=== PATIENT | male | born 1925 | race Caucasian/White ===

== ENCOUNTER 2016-09-08 01:19 | Inpatient (IN) | payer MEDICARE, MEDICAID, OTHER ==
[2016-09-08] VITALS (10 sets, daily range): BP systolic 96–126; BP diastolic 49–62; PULSE 65–126; RESP 14–21; O2SAT 91–99
[~2016-09-08] VITALS: Ht 182.9 cm; Wt 80.4 kg
[~2016-09-08 01:19] MED LIST: ACET325C PO; ASPI-973 PO; DOCU-41 PO; EUCA170O5 EXT; FLUT9.9S NS; GLPZ5T PO; LEVO175T5 PO; LEVO750T9 PO; MAGN400T4 PO; MULT-1008 PO; MUPI22OI2 TOP; OMEP20CA11 PO; RANI150C4 PO; THIO10TA PO; TOLN133P TP; TOLT2TAB5 PO; TROL35.4 TP; [UNRECOGNIZED DRUG - OTHER] PO
[2016-09-08] MEDS ORDERED: 0.9% Sodium Chloride 1,000 ML IV ONE ×3 (01:21→03:35)
--- NOTE | 2016-09-08 01:21 | ED.REPORT ---
HPI-General Illness Date of Service Sep 08, 2016 ED Provider: Db CespedesO. An 89 year old male with a medical history including pneumonia, Alzheimer's disease, arthritis, diabetes, anxiety, hearing problems, and thyroid disease presents to the ED via EMS from his adult family home with vomiting onset yesterday. Associated symptoms include bowel incontinence and diarrhea onset today. EMS found the patient in atrial fibrillation with RVR rate 200. He had a BP of 106/56 and otherwise normal vital signs. The patient was given 15mg diltiazem en route. He has had similar symptoms in the past, associated with pneumonia. The patient is not communicating or following directions in the ED. Nursing Notes Stated Complaint: A-FIB W/RVR Nursing Notes Reviewed: Yes Allergies: Coded Allergies: No Known Allergies (Verified , 09/08/16) Scheduled Aspirin (Aspirin) 81 Mg Tablet 81 MG PO DAILY Carbamide Peroxide (Earwax Treatment Drops) 6.5 % Drops 1 DROP AFFECT_EAR DIRECTED Docusate Sodium (Colace) 100 Mg Capsule 200 MG PO QAM Fluticasone Propionate (Flonase Allergy Relief) 50 Mcg/Actuation [place].susp 1 SPRAY NS QAM Glipizide (Glipizide) 5 Mg Tablet 2.5 MG PO QAM Levothyroxine (Levothyroxine) 175 Mcg Tablet 175 MCG PO QAM Magnesium Oxide (Magnesium Oxide) 400 Mg Tablet 400 MG PO TID Multivitamin/Iron/Folic Acid (Sentry Tablet) 1 Each Tablet 1 EACH PO DAILY Omeprazole (Omeprazole) 20 Mg Capsule.dr 20 MG PO BID Ranitidine (Ranitidine) 150 Mg Capsule 150 MG PO BID Thioridazine (Thioridazine) 10 Mg Tablet 20 MG PO BID Tolterodine Tartrate (Tolterodine Tartrate) 2 Mg Tablet 2 MG PO BID Scheduled PRN ([Thick it]) 1 DOSE PO DIRECTED PRN PRN thin liquids to prevent chokin honey thicken all liquids Acetaminophen (Acetaminophen) 325 Mg Capsule 650 MG PO Q6H PRN PRN For Pain Eucalyptus Oil/Menthol/Camphor (Vicks Vaporub Ointment) 1.2 %-2.6 %-4.8 % Oint...g. 1 APPLIC EXT TID PRN PRN For Cough General Time Seen by MD: 01:21 Transferred From: skilled nursing Chief Complaint Vomiting Hx Obtained From: Field Sales Specialist, EMS Unable to Obtain Hx: Patient condition, Mental status Arrived By: Ambulance Onset Occurred: Yesterday Symptom Duration: Since onset Pertinent Negative: Relieved by nothing Context Related History: Reports Diabetes mellitus Recent Healthcare: No recent doctor visit Similar Sx Previous: Yes Past Medical History Past Medical History Pneumonia Heartburn Arthritis Hiatal hernia Anxiety Dysphagia Thyroid disease Alzheimer's Hard of hearing Reports: Diabetes mellitus Past Surgical History None reported Family History non-contributory Smoking History Never Smoker Social History Has 24 hour caregiver Alcohol Use: Denies alcohol use Drug Use: Denies drug use Other Social History: Local resident Ambulatory Status Independent Review of Systems Unable to Obtain ROS Patient condition, Mental status Physical Exam Vital Signs He was initially tachycardic at 160. First blood pressure was 140. Respiratory was 22. Initial VS: Reviewed Head / Eyes: Atraumatic, Normocephalic General/Constitutional: Awake, Alert Will not communicate Patient was incontinent in stool Head / Eyes: Atraumatic, Normocephalic ENT: Airway patent Mouth: Positive: Mucous membranes dry Trauma - ENT Specific: Positive: Lip injury (Patient may have bitten his lip, there is dried blood present in his mouth) Neck: Supple, Full range of motion Respiratory / Chest: Breath sounds = bilat, No respiratory distress Diminished Breath Sounds: Positive: Decreased bilateral Heart Rate / Rhythm: Positive: Irreg irregular rhythm, Tachycardia Heart Sounds / Murmur: Positive: Systolic murmur present.. (ejection) Abdomen: Soft, Non-tender, No rebound Upper Extremities Upper Extremity / MS: Atraumatic, Inspection NL Lower Extremity / Pelvis / MS: Atraumatic, Inspection NL Skin: Warm, Dry No gross decubitus ulcers present NEUROLOGIC: Patient localizes pain x4 extremities Interpretation & Diagnostics Lab Results Interpretation Result Diagram: 09/08/1615409/08/16 0155 Test 09/08/16 01:55 White Blood Count 7.3th/mm3 (3.8-10.1) Red Blood Count 4.11mil/mm3 (4.40-5.80) Hemoglobin 13.0g/dL (13.8-17.2) Hematocrit 39.9% (41.0-50.0) Mean Corpuscular Volume 97.1fL (81-100) Mean Corpuscular Hemoglobin 31.6pg (27.0-35.0) Mean Corpuscular Hemoglobin Concent 32.6% (32.0-37.0) Red Cell Distribution Width 12.7% (12.3-15.4) Platelet Count 140bil/L (150-400) Neutrophils (%) (Auto) 92.5% (40-74) Lymphocytes (%) (Auto) 5.6% (14-46) Monocytes (%) (Auto) 1.5% (4-12) Eosinophils (%) (Auto) 0.3% (0-5) Basophils (%) (Auto) 0% (0-3) Prothrombin Time 10.7sec (8.1-12.5) Prothromb Time International Ratio 1.00ratio Sodium Level 137mEq/L (134-144) Potassium Level 4.1mEq/L (3.5-5.2) Chloride Level 100mEq/L (97-108) Carbon Dioxide Level 22mmol/L (18-29) Blood Urea Nitrogen 34mg/dL (8-27) Creatinine 1.03mg/dL (0.76-1.27) Estimat Glomerular Filtration Rate 72mL/min (>59) Glucose Level 220mg/dL (60-99) Calcium Level 8.7mg/dL (8.5-10.1) Magnesium Level 1.9mg/dL (1.6-2.6) Total Bilirubin 0.5mg/dL (0.0-1.2) Aspartate Amino Transf (AST/SGOT) 23U/L (0-50) Alanine Aminotransferase (ALT/SGPT) 30U/L (0-44) Alkaline Phosphatase 104U/L (25-160) Troponin T 0.010ug/L (0.0-0.011) Total Protein 7.8g/dL (6.4-8.4) Albumin 3.9g/dL (3.4-5.0) Procalcitonin 0.03ng/mL (0.00-0.08) Thyroid Stimulating Hormone (TSH) 0.522uIU/mL (0.450-4.500) Free Thyroxine 1.31ng/dL (0.82-1.77) ECG Interpretation ECG Interpretation: Atrial fibrillation rate 133 Inferior infarct, old Lateral leads also involved Time: 01:28 Interpreted by: ED physician X-Ray Chest Interpretation Chest Xray Interpretation: Left basilar infiltrate View: Portable, 1 view Interpretation / Wet Read by: Wet read ED physician Re-Eval/Medical Decision Med Decision/Clinical Course 89-year-old male with multiple comorbidities presents acutely ill. Per caregivers he has vomiting and diarrhea. EMS was called because her prescription concerns of aspiration. EMS found him to be in atrial fibrillation with rapid ventricular response. He received some Cardizem without relief. On my evaluation Mr. Villavicencio was awake alert Acutely ill. His dementia precludes any sort of history. He has had was grossly normal with parched mucous membranes. Cardiac was tachycardic. Lungs were diminished at the bases. Abdomen was soft without rebound guarding or rigidity. He had heme-negative diarrhea. Limbs without signs of trauma. He had poor perfusion clinically. 2 large-bore IVs were placed. I placed one personally under ultrasound guidance in the left arm. He was fluid resuscitated. Cardizem drip initiated. Chest x-ray suspicious for basilar pneumonia. Zosyn was initiated. Laboratory work was drawn. The only thing that stands out as a lactic acidosis and he is dry. Overall he looked better. I am convinced he may have C. difficile based on the diarrhea. We will admit for further care and treatment. Source of Hx: Old records Time of Eval: 02:40 Re-Evaluation/Progress Note: Patient rechecked. He is actively vomiting. Discussed with patient's motor home electrical foreman lab and x-ray results, diagnosis, and plan for admit. Patient's caregiver agrees with plan for care and all questions were addressed. Time of Eval: 02:45 Patient Status: Condition improved Re-Evaluation/Progress Note: Patient rechecked. IV access is difficult due to patient's dehydration. US was used and left antecubital IV was established. Consultation : Referral / Consult Name: Chriss Kelley MD Consulted With: Hospitalist Call Returned at: 02:52 Manager Photography: Agrees with eval, Agrees with plan, Accepts admit Counseled Regarding: Diagnosis, Need for admission Discharge & Departure Primary Impression: Atrial fibrillation with RVR Additional Impressions: Pneumonia Pneumonia type: due to unspecified organism Laterality: left Lung location : lower lobe of lung Qualified Code: J18.9 - Pneumonia, unspecified organism Vomiting Vomiting type: unspecified Vomiting Intractability: non-intractable Nausea presence: unspecified Qualified Code: R11.10 - Vomiting, unspecified Diarrhea Dehydration Lactic acidosis Disposition: ADMITTED TO HOSPITAL Discharge Condition All VS Reviewed: Yes Condition: Improved Referrals: Marco Watt MD (PCP) Crit Care Except Billable Proc Time Spent: 30-74 minutes Services Performed: Patient management by me, Time spent at bedside, Reviewing test results, Reviewing imaging, Discussing patient care, Documentation in record, Time with fam/surrogate Scribe Attestation Portions of this note were transcribed by Denia Garza. I, Dr. Small, personally performed the history, physical exam, and medical decision-making; I reviewed and confirmed the accuracy of the information in the transcribed note. Signed by: Marielos Amezquita, 09/08/2016, 02:55 copies to: Marco Watt MD, Todd P DO Sep 08, 2016 01:21 DENIA GRAZA Sep 08, 2016 01:30
[2016-09-08] MEDS: Diltiazem Inj 125 MG in 0.9% Sodium Chloride 100 ML, Pharmacy To Mix 1 EA IV SCH ×2 (01:40→02:03)
[2016-09-08] MEDS ORDERED: Piperacillin-Tazo 3.375 Gm Inj 3.375 GM in Dextrose 5% Minibag Plus 50 ML IV ONE (01:50)
[2016-09-08 02:03] LABS: BASOPHILS % (AUTO) 0 % (0-3); EOSINOPHILS % (AUTO) 0.3 % (0-5); MONOCYTES % (AUTO) 1.5 % (4-12); Mean Corpuscular Hemoglobin 31.6 pg (27.0-35.0); Mean Corpuscular Volume 97.1 fL (81-100); NEUTROPHILS % (AUTO) 92.5 % (40-74); Platelet Count 140 bil/L (150-400)
[2016-09-08] MEDS ORDERED: Diltiazem 5 mg/mL 5 mL Inj IVPUSH ONE (02:10)
[2016-09-08 02:38] LABS: Magnesium 1.9 mg/dL (1.6-2.6)
[2016-09-08 02:39] LABS: TROPONIN T 0.01 ug/L (0.0-0.011)
[2016-09-08] MEDS ORDERED: Ondansetron 2 mg/mL 2 mL Inj IVPUSH PRN ×2 (02:40→03:25)
[2016-09-08] MEDS ORDERED: Alum-Mag Hydrox-Simeth 30 mL Suspension PO PRN (03:25)
[2016-09-08] MEDS ORDERED: Polyethylene Glycol (PEG) 17 Gm Powder PO PRN (03:25)
[2016-09-08] MEDS: Nystatin 100,000 Unit/Gm 15 Gm Powder TOPICAL SCH ×3 (03:35→21:30)
[2016-09-08 03:56] LABS: APPEARANCE,URINE CLEAR (CLEAR,HAZY); COLOR,URINE YELLOW (YELLOW); OCCULT BLOOD,URINE TRACE (NEGATIVE); UROBILINOGEN,URINE NORMAL (NORMAL)
--- NOTE | 2016-09-08 03:56 | PCM.HPMED ---
Subjective Date of Service Sep 08, 2016 Primary Provider: Admitting Physician: Chriss Kelley MD Primary Care Physician: Marco Watt MD Attending Physician: Chriss Kelley MD Admit Status: From the Emergency Department Chief Complaint: Choco gallegos with RVR Vomiting Diarrhea Sepsis History of Present Illness: Patient is an 82-year-old gentleman with medical history significant for recurrent pneumonia, Alzheimer's, arthritis, diabetes, anxiety, hard of hearing , thyroid disease, presented to the emergency department via EMS from his adult family home with vomiting onset since yesterday, he has bowel incontinence which started today as watery diarrhea. EMS found the patient to be in atrial fibrillation with RVR rate 200, blood pressure 106/56, with otherwise normal vital signs, he received diltiazem en route as well as in the emergency department. He was substantially fecally incontinent in the emergency department. His caregiver reports that he has had decreased oral intake the last couple of days, and routinely discarded for pneumonia "we're and here almost once a month." In the ER had a normal white count, however 92.5% neutrophils, hemoglobin of 13 , BUN 34, creatinine 1.3, glucose 220, troponin was negative, magnesium is normal, pro-calcitonin 0.03, lactic acid 3.0, his urine pH of 6, specific gravity 1.02, trace leukocyte esterase, few epithelial cells, few bacteria seen , 6-10 white blood cells. EKG showed heart rate of 133, QTC 469, "atrial fibrillation, old inferior and lateral infarct" Chest x-ray in the emergency department was interpreted by the ER physician as having a left basilar infiltrate. Review of Systems: Unable to obtain ROS, patient will not communicate. Allergies Coded Allergies: No Known Allergies (Verified , 09/08/16) Home Medications Aspirin (Aspirin) 81 Mg Tablet 81 MG PO DAILY Docusate Sodium (Colace) 100 Mg Capsule 200 MG PO QAM Glipizide (Glipizide) 5 Mg Tablet 2.5 MG PO QAM Levofloxacin (Levaquin) 750 Mg Tablet 750 MG PO DAILY Levothyroxine (Levothyroxine) 175 Mcg Tablet 175 MCG PO QAM Magnesium Oxide (Magnesium Oxide) 400 Mg Tablet 400 MG PO TID Multivitamin/Iron/Folic Acid (Sentry Tablet) 1 Each Tablet 1 EACH PO DAILY Omeprazole (Omeprazole) 20 Mg Capsule.dr 20 MG PO BID Ranitidine (Ranitidine) 150 Mg Capsule 150 MG PO BID Thioridazine (Thioridazine) 10 Mg Tablet 20 MG PO BID Tolterodine Tartrate (Tolterodine Tartrate) 2 Mg Tablet 2 MG PO BID Scheduled PRN ([Thick it]) 1 DOSE PO DIRECTED PRN PRN thin liquids to prevent chokin Acetaminophen (Acetaminophen) 325 Mg Capsule 650 MG PO Q6H PRN PRN For Pain Eucalyptus Oil/Menthol/Camphor (Vicks Vaporub Ointment) 1.2 %-2.6 %-4.8 % Oint...g. 1 APPLIC EXT TID PRN PRN For Cough Fluticasone Propionate (Flonase Allergy Relief) 50 Mcg/Actuation [place].susp 1 SPRAY NS QAM PRN PRN allergies Mupirocin (Mupirocin Ointment) 22 Gm Oint...g. 1 APPLIC TOP TID PRN PRN prn Tolnaftate (Lamisil AF) 1 % Aero.powd 133 GM TP BID PRN PRN prn Trolamine Salicylate/Aloe Vera (Aspercreme 10% Cream) 35.4 Gm Cream..g. 35.4 GM TP q4 hours PRN PRN For Pain PMH Past medical history Pneumonia Heartburn Arthritis Hiatal hernia Anxiety Dysphagia Thyroid disease Alzheimer's Hard of hearing Reports: Diabetes mellitus Surgical History No surgeries reported Unable to find history of surgeries and past medical records Family History Unable to obtain family medical history due to mental status Unable to find family history and previous medical records Social History Occupation: retired/disabled Hx Alcohol Use: No Hx Substance Use: No Hx Tobacco Use: No Smoking Status: Never Smoker Living Arrangement: [facility] Exam Vital Signs 121/60 90 beats per minute 21 respirations per minute 101.8F axillary Exam General: Laying in bed, no apparent distress. Pale HEENT: Normocephalic, dried blood around mouth, but appears to be a healing laceration right inferior labia, EOMI grossly, mucous membranes dry, Cardiovascular: Irregularly irregular, tachycardic, 2/4 systolic murmur, peripheral pulses 2/4 equal bilaterally Pulmonary: Clear to auscultation bilaterally, no W/R/R. Abdominal: Soft to palpation, nontender, bowel sounds present 4, hyperactive, no hepatosplenomegaly. Negative rebound. /GI: Actively fecal incontinent, watery, foul-smelling. Red moist skin inguinal area. Extremities: No edema appreciated. No tenderness, asymmetry. Muscle atrophy to all 4 extremities Neuro: Neurologically grossly intact. MSK: Patient is able to move his extremities on his own volition. Lab and Diagnostics Result Diagram: 09/08/1615409/08/16154 Microbiology Blood cultures 2 pending Stool PCR pending X-Rays, CTs and MRIs Awaiting official read on chest x-ray, see history of present illness for ER physician interpretation 12-lead ECG Please see history of present illness Assessment & Plan 89-year-old gentleman 2 days of vomiting, one day of diarrhea, presents with atrial fibrillation and RVR, substantial fluid loss, believed to be septic, responding to fluids and rate control. #1 Acute Sepsis present on admission, treatment initiated left shift, tachycardic, tachypneic, fever, elevated serum lactic acid, Source: Pneumonia and/or GI Blood cultures pending Blood pressure is stable, O2 sat is stable, monitor vital signs for signs of shock Trend lactic acid, #2 acute, new onset Atrial fibrillation with RVR, present on admission - improving -Responsive to diltiazem push and drip, heart rate at last check was 90 beats per minute blood pressure has remained stable -Unable to evaluate if patient is symptomatic due to underlying mental status -Caregiver present cannot state if he has ever had atrial fibrillation before, patient is not on any blood thinners or rate control medications, nor do I see atrial fibrillation mentioned in previous history. -Continue diltiazem gtt. per heart rate protocol -Cardiology consult -Patient is high risk given his mental status. Gen-Vasc2 score of 3 confirming a 4.6% risk of stroke/TIA/systemic embolism Has-bled score 2, risk of 4.1%, and 1.88 per 100 patient years - On subq heparin. Recheck EKG 10 AM #3 Acute recurrent pneumonia, present on admission, active Chest x-ray showed lesion in left lower lobe, compared with previous x-ray, consistent with previous presentation. Respiratory status is intact, satting well on room air Last ER visit for pneumonia was in May, treated with outpatient Levaquin. Patient has been 4 months clear since treatment. Tx: Levaquin 750 mg IV daily Given the recurrent nature of the pneumonia, suspicious for aspiration, swallow evaluation ordered. #4 Acute Fluid depletion secondary to diarrhea and vomiting, present on admission, treatment initiated, improving History of vomiting for 2 days, diarrhea and fecal incontinence for 1 day, tachycardia, dry mucous membranes, -Received 2 L IV normal saline the department, improved tachycardia, remained in atrial fibrillation -IV fluid repletion with normal saline #5 Acute Gastroenteritis, present on admission, evaluation ongoing Foul-smelling watery diarrhea in the emergency department frequently incontinent C. difficile PCR pending History of frequent pneumonias, and subsequently frequent antibiotic use. Continue with fluid repletion as above Contact precautions Most likely viral in nature. If C. difficile positive, oral vancomycin. Infectious disease consult if symptoms worsen or do not regress. #6 Tinea cruris, chronicity unknown, present on admission, treatment initiated Red moist inguinal rash. Nystatin powder twice a day #7 Chronic diabetes, uncontrolled on admission, active Serum glucose was 220, presumably fastings since is told he has not been eating anything. A1c Moderate correctional insulin scale #8 Chronic hypothyroidism, resident on admission, evaluation ongoing Given new onset atrial fibrillation, prudent to assess thyroid function TSH plus free T4 Continue home thyroid medications #9 medication reconciliation to be performed DVT prophylaxis with SCDs, Heparin sub Q GI prophylaxis not indicated Pain management: Patient does not express pain, Tylenol for coverage of fever and discomfort. SPOKE WITH CAREGIVER ACCOMPANYING PATIENT WHO STATED NO CPR. THERE IS NO DOCUMENTATION OF CODE STATUS AVAILABLE OTHERWISE. Pain Evaluation: Adequate Pain Control GI Prophylaxis: Not indicated VTE Prophylaxis: SCDs Resuscitation Status: DNR/DNI:Do Not Resuscitate/Intubate Attending Statement The patient was seen and examined together with Dr. Rene on 09/08 and I agree with the history, exam and plan as outlined in the note above. Lavon Arenas DO Sep 08, 2016 03:56 Chriss Kelley MD Sep 08, 2016 05:42
[2016-09-08] MEDS: 0.9% Sodium Chloride 1,000 ML IV SCH ×4 (04:08→21:32)
--- NOTE | 2016-09-08 07:36 | NUR ---
Admit Note/Tele Pt arrived to room 2024 a little after 0500, pt not showing any signs of distress, vitals stable, IV fluids per orders. Tele SR 80s, EKG ordered and in chart, MD aware. Critical Lactic acid of 4.6, reported to MD. Admission questions done by recall as pt is unable to communicate history and caregiver unable to provide complete history.
[2016-09-08] MEDS: Heparin 5,000 Unit/mL Inj SUBQ SCH ×2 (08:07→16:54)
[2016-09-08] MEDS ORDERED: levoFLOXacin Inj 750 MG in IV Premix 1 EACH IV SCH (08:30)
[2016-09-08] MEDS ORDERED: Piperacillin-Tazo 3.375 Gm Inj 4.5 GM in Dextrose 5% Minibag Plus 50 ML IV SCH (08:30)
--- NOTE | 2016-09-08 09:26 | DRSVH ---
PROCEDURE: X-RAY CHEST ONE VIEW, PORTABLE ([id number]) INDICATIONS: rapid heart rate, TECHNIQUE: One view of the chest was acquired. COMPARISON: [facility], CR, XR CHEST 1VW (PORTABLE), 06/23/2016, 8:04. FINDINGS: Surgical changes and devices: None. Lungs and pleura: No pleural effusions or pneumothorax. Lungs are clear. Lung volumes are increase d with flattening of the hemidiaphragms suggesting COPD. Mediastinum: Mediastinal contours appear normal. Heart size is normal. Bones and chest wall: No suspicious bony lesions. Overlying soft tissues appear unremarkable. IMPRESSION: No acute cardiopulmonary disease. Dictated by: Praful Antonio [facility] Interpreted: Sandy Damon MD on 09/08/2016 at 9:25 Transcribed by: DIALLO on 09/08/2016 at 9:25 Approved by: Sandy Damon MD, PhD on 09/08/2016 at 17:01
--- NOTE | 2016-09-08 10:53 | NUR ---
Evaluation completed. Please go to "Notes" then click on "Assessments and Notes" (bottom left corner of screen). Then select appropriate discipline tab on top of screen.
[2016-09-08] MEDS ORDERED: RANI150C4 PO (11:47)
[2016-09-08] MEDS ORDERED: CARB-199 AFFECT_EAR (11:47)
--- NOTE | 2016-09-08 11:47 | PCM.PNMED ---
Subjective Date of Service Sep 08, 2016 Subjective Patient was admitted to the hospital early this morning for sepsis and acute afib with rapid ventricular rate, which seem to improve. Patient is alert, but nonverbal. Per caregiver, patient does not have any family and has been with the [employer] for the last 15 years. Caregiver also reports that the patient's current mental status and nonverbal state is not baseline as patient can talk and express his needs. The patient's has limited mobility at baseline, but can feed himself. Otherwise, he requires assistance in other daily living activities. Exam Vital Signs Vital Sign - Last Date Time Temp Pulse Resp B/P Pulse Ox O2 Delivery O2 Flow Rate FiO2 09/08/16 08:01 36.9 65 20 104/49 94 Room Air Intake and Output 09/07/16 09/07/16 09/08/16 Cumulative From/Thru 15:00 23:00 07:00 09/08/16 03:42 - 09/08/16 04:09 Intake Total 2999 ml 2999 ml Output Total 100 ml 100 ml Balance 2899 ml 2899 ml Intake IV Total 2999 ml 2999 ml Output Urine Total 100 ml 100 ml Exam General: Pale and chronically-ill looking. Laying in bed, no apparent distress. Non-verbal but makes eye contact and touch hands upon commands. HEENT: Normocephalic, mucous membranes dry, poor dentition. Cardiovascular: Regular rate and rhythm. III/ systolic murmur. Pulmonary: difficult to assess to due shallow breath. However, no crackles/ wheezes/rhonchi appreciated. Abdominal: Soft to palpation, nontender, bowel sounds present 4, hyperactive, no hepatosplenomegaly. Negative rebound. Extremities: No edema appreciated. No tenderness, asymmetry. Muscle atrophy to all 4 extremities Neuro: unable to assess due to patient's mental status. Skin: no rash noted on the extremities. IVs and Medications Medications Reviewed: Medications were reviewed in detail Lab and Diagnostics Result Diagram: 09/08/16 [id number] Microbiology Blood cultures 2 pending C. diff negative Stool PCR pending X-Rays, CTs and MRIs PROCEDURE: X-RAY CHEST ONE VIEW, PORTABLE IMPRESSION: No acute cardiopulmonary disease. Dictated by: Praful VIDAL Interpreted: Sandy Damon MD on 09/08/2016 at 9:25 Transcribed by: DIALLO on 09/08/2016 at 9:25 Approved by: Sandy Damon MD, PhD on 09/08/2016 at 17:01 12-lead ECG Please see history of present illness Assessment & Plan 89-year-old gentleman 2 days of vomiting, one day of diarrhea, presents with atrial fibrillation and RVR, substantial fluid loss, believed to be septic, responding to fluids and rate control. #1 Acute Sepsis, present on admission, improved. - left shift, tachycardic, tachypneic, low grade fever (37.6), elevated serum lactic acid, altered mental status. Source: likely gastroenteritis. - Blood cultures pending. - Blood pressure is stable, O2 sat is stable. - Continue to monitor vital signs for signs of shock. - IVF with NS was reduced from 125mls/hr to 100mls/hr. - Continue to monitor vital signs. - Treat the source as below #2 Acute, new onset Atrial fibrillation with rapid ventricular rate, present on admission, resolved. -Responsive to diltiazem push and drip. Patient converted to regular rate and rhythm on admission. HR has been in the 70s. -Diltiazem ggt taper. -Unable to evaluate if patient is symptomatic due to underlying mental status -Gen-Vasc2 score of 3. Has-bled score 2. -Afib is likely secondary to rapid heart rate from the acute dehydration. Therefore, will not start anticoagulation at this point. -Continue home ASA -On subq heparin. #3 Acute Fluid depletion secondary to diarrhea and vomiting, present on admission, treatment initiated, improving - History of vomiting for 2 days, diarrhea and fecal incontinence for 1 day, tachycardia, dry mucous membranes, -Received 2 L IV normal saline the department, which improved tachycardia. -IV fluid repletion with normal saline at 125mls/hr. Now decrease to 100mls/hr. #4 Acute Gastroenteritis, present on admission, improved. - Foul-smelling watery diarrhea in the emergency department. - C. difficile PCR negative - Most likely viral etiology. Stool viral PCR ordered, but unable to obtain stool. - Review of his medication list indicates that patient takes Magnesium daily at home. This could also contribute to the diarrhea. - Continue with fluid repletion as above #5 Altered mental status, present on admission, active. - Likely secondary to acute gastroenteritis and dehydration. - Neurological exam is difficult to assess and rely on caregiver to monitor improvement. - Fluid repletion as above. - Appreciate Speech Therapy's recommendations. - Continue to monitor symptoms. #6 Possible acute recurrent pneumonia, present on admission, unlikely. - Suspected PNA to be the source of the sepsis, but in retrospect, it is more likely GI source. - CXR negative per radiology. - Patient's Last ER visit for pneumonia was in05/2016 and was treated with outpatient Levaquin. - He received a dose of Zosyn in the ER and 1 dose of Levaquin on admission. - Respiratory status is intact, satting well on room air. - Procalcitonin 0.03. Therefore, unlikely to a bacterial infection and will stop Levaquin. #7 Tinea cruris, chronicity unknown, present on admission, treatment initiated - Red moist inguinal rash noted on admission. - Continue Nystatin powder twice a day #8 Chronic diabetes, uncontrolled on admission, active - Serum glucose was 220 on admission - A1c pending - Hold Glyburide - Continue medium correctional insulin scale #9 Chronic hypothyroidism, stable. - TSH and free T4 normal - Continue home thyroid medications #10 Overactive bladder, chronic, stable. - Continue home dose of Detrol #11 Possible schizophrenia, chronic. - Continue home Thioridazine #12 CODE STATUS: - No new guardianship paperwork since the last admission. - Palliative Care was consulted to help with goals of care. Their recommendations are greatly appreciated. - In light of his multiple comorbidities, we agree with the palliative care team that any aggressive resuscitation efforts would be not beneficial to the patient. Therefore, patient will be DNR/DNI at this time. - Palliative care team will complete a POLST form and send back to his [facility]. DVT prophylaxis with SCDs, Heparin sub Q GI prophylaxis not indicated Pain management: Patient does not express pain, Tylenol for coverage of fever and discomfort. Disposition: likely 2+ days given his ongoing sepsis treatment. Pain Evaluation: Adequate Pain Control GI Prophylaxis: Not indicated VTE Prophylaxis: Sub-Q Heparin (Unfractionated), SCDs Resuscitation Status: DNR/DNI:Do Not Resuscitate/Intubate Attending Statement The patient was seen and examined together with Dr. Lynn on 09/08/2016 and I agree with the history, exam and plan as outlined in the note above. . Ken Lynn DO Sep 08, 2016 11:47 Helder Loyd MD Sep 10, 2016 14:40
--- NOTE | 2016-09-08 13:11 | NUR ---
Palliative Care Palliative Care received order from Dr Chin Lynn 09/08/16 to assist with goals of care. Patient is an 89 year old developmentally delayed man, who presented to [facility] with 2 days of vomiting and one day of diarrhea. He was admitted today 09/08/16 with atrial fibrillation and RVR, substantial fluid loss and believed to be septic. Palliative Care to follow. Pamela Baeza
--- NOTE | 2016-09-08 13:12 | NUR ---
Social Work: Initial Assessment D: Per EMR review, pt is an 89 year old male admitted for A-fib with RVR/Nausea/Vomiting/Diarrhea. Pt is Medicare with [facility] supplement; pt has DDA services with no LTC insurance or VA Benefits. PCP is Marco Watt MD. NOK is not listed. Advanced directives not completed- per caregiver, they are working on obtaining guardianship for pt. Readmit score not entered at this time. FIRER HELPER met with pt's caregiver at bedside. Pt lives in an adult family home with 24/7 caregiving support from caregivers supplied by [facility]. Pt is 2 person total assist for ambulation and requires assistance with all ADLS including toileting, dressing, bathing and feedings. Pt is primarily w/c bound. Caregivers have a walker, wheelchair, bath bench and elevated toilet seat for the pt's use. FIRER HELPER spoke with on-call steam fitter supervisor maintenance for [facility]. She will be staffing the pt with caregivers through his stay. She states the pt has a DDA CM named Rene Rodriguez ([phone]). [facility] can accept the pt back whenever ready. The pt typically transfers in private vehicle but sometimes requires cabulance. [facility] states they are working on obtaining guardianship for the pt as he has no familial NOK however this is still in process. A: Pt who is totally dependent for care and lives at an AF. P: Anticipate pt to return back to [facility] when medically stable; FIRER HELPER to continue to follow. LUIZ Styles Addendum: 09/08/16 at 1323 by ISABELA BREWSTER Amended: Links added.
--- NOTE | 2016-09-08 13:48 | PCM.CONPAL ---
Date of Service Sep 08, 2016 Date of Hospital Admission: Sep 08, 2016 at 02:57 Date of Palliative Consult: Sep 08, 2016 Requesting Provider: Ken Lynn DO Reason Palliative Care Consult: Advance Care Planning Hospital Unit @time of consult: Progressive Care Palliative Care Recommendation 89-year-old man with progressive decline in setting of lifelong developmental delay, now with superimposed Alzheimer's dementia, atrial fibrillation with RVR , recurrent aspiration and pneumonias, dehydration, etc. Palliative medicine consulted to assist in determination of goals of care. Summary of palliative recommendations: -Symptom management (Pain/other)- appears comfortable today. Continued management per hospitalist service. Palliative medicine will continue to follow and assist in symptom management as needed. -DPOA/Advanced Directives/POLST- no POA or advanced directive documentation. His caregivers are in the process of obtaining guardianship but that process is incomplete at this time. Reviewed his status with his caregivers, as well as with other palliative team members and with his medical/hospitalist team. In my opinion, aggressive resuscitation efforts (including CPR/defibrillation/intubation/mechanical ventilation) would be non-beneficial (and actually harmful) and ultimately futile in light of his multiple comorbidities. His other caregivers/providers agree with this assessment and will document same. I have therefore changed his CODE STATUS to DO NOT RESUSCITATE/DO NOT INTUBATE, though we will continue other care short of those terminal interventions. We will complete a POLST to be sent back to his [facility] with him at time of discharge reflecting this status. -Family/emotional support- will maintain contact with his caregivers at his AFH and update them on his progress. Encouraged them to complete his documentation for obtaining guardianship as expeditiously as possible. Additional Medical Diagnoses with primary management by Hospitalist team include : #1 Acute Sepsis present on admission, treatment initiated #2 acute, new onset Atrial fibrillation with RVR, present on admission - improving #3 Acute recurrent pneumonia, present on admission, active #4 Acute Fluid depletion secondary to diarrhea and vomiting, present on admission, treatment initiated, improving #5 Acute Gastroenteritis, present on admission, evaluation ongoing #6 Tinea cruris, chronicity unknown, present on admission, treatment initiated #7 Chronic diabetes, uncontrolled on admission, active #8 Chronic hypothyroidism, resident on admission, evaluation ongoing Problems: End of Life Preferences DO NOT RESUSCITATE/DO NOT INTUBATE Goals of Care Recovery and return to his AF[facility] Patient is profoundly impaired cognitively and is nonverbal, so this represents his presumed goals Disposition As above Resuscitation Status Resuscitation Status: DNR/DNI:Do Not Resuscitate/Intubate POLST Updates/Changes Previous POLST?: No . Advanced Care Planning Address: Code status change, Durable Power of Real Estate Investment Analyst Pain: None Pt History History of Present Illness Per admission H&P: Patient is an 82-year-old gentleman with medical history significant for recurrent pneumonia, Alzheimer's, arthritis, diabetes, anxiety, hard of hearing , thyroid disease, presented to the emergency department via EMS from his adult family home with vomiting onset since yesterday, he has bowel incontinence which started today as watery diarrhea. EMS found the patient to be in atrial fibrillation with RVR rate 200, blood pressure 106/56, with otherwise normal vital signs, he received diltiazem en route as well as in the emergency department. He was substantially fecally incontinent in the emergency department. His caregiver reports that he has had decreased oral intake the last couple of days, and routinely discarded for pneumonia "we're and here almost once a month." Palliative medicine consulted to assist with advanced care planning and goals of care determination. Prior to visiting, I reviewed his records in the EMR in detail, spoke with caregivers at his adult family home, and spoke with another of his caregivers at bedside. Primary contact today was with Kylee Morse of [facility] (runs his [facility]) at . Ms. Morse works with Cee Hunetr, who is identified in the EMR as his primary contact. The patient has no guardian, no power of employment attorney, no family. Ms. Morse tells me that guardianship paperwork is in the process of being completed. After my extensive telephone conversations, I visited the patient. He is lying curled up on his right side in bed, nonverbal, awake and seemingly alert but not communicative. Appears to be in no obvious distress. His caregiver at bedside said that he looked comfortable to him as well. Past Medical History Significant PMH Noted: 1. Mental Retardation/developmental disability (since ) 2. Alzheimer's Disease 3. Hypothyroidism 4. Diabetes Mellitus, Type II 5. Seasonal Allergies 6. GERD 7. Recurrent aspiration and pneumonia Social History Occupation: Disabled Family Members Issues: His caregivers note consistent decline over the last several years. They acknowledge that he appears to be nearing end-of-life Social Support: Good social support from the caregivers at his facility Living Situation: Adult family home Palliative Performance Scale PPS Patient Status: Baseline PPS Ambulation: Mainly Sit/Lie PPS Activity: Unable to do any activity PPS Self-Care: 2 person assist PPS Intake: Normal or reduced PPS Conscious Level: Full or confusion Performance Scale: 30% ADLs ADL Patient Status: Baseline ADL Ambulation: Mainly Bed ADL Dressing: Mainly assistance ADL Feeding: Mainly assistance ADL Hygene/bathing: Total care ADL Transfers: Total care FAST Scale FAST Score: 7-C Allergy Allergies Reviewed: Yes Medications Current Medications: Current Medications Diltiazem HCl/ Sodium Chloride/ Miscellaneous 125 ml @ 5 mls/hr Q24H IV Last administered on 09/08/16 01:40; Admin Dose 5 MLS/HR; Start 09/08/16 at 01:40 Ondansetron HCl 4 mg Q15M PRN IVPUSH; Start 09/08/16 at 02:40; Stop 09/08/16 at 05:08; Status DC Al Hydrox/Mg Hydrox/Simethicone 30 ml Q6H PRN PO; Start 09/08/16 at 03:25 Ondansetron HCl 4 to 8 mg Q4H PRN IVPUSH; Start 09/08/16 at 03:25 Senna 17.2 mg BID PRN PO; Start 09/08/16 at 03:25 Polyethylene Glycol 17 gm DAILY PRN PO; Start 09/08/16 at 03:25 Nystatin 1 applic 1 applic BID TOPICAL; Start 09/08/16 at 03:35 Sodium Chloride 1,000 ml @ 125 mls/hr Q8H IV Last administered on 09/08/16 08: 07; Admin Dose 125 MLS/HR; Start 09/08/16 at 03:35 Heparin Sodium (Porcine) 5000 unit 5,000 unit Q8 SUBQ Last administered on 08:07; Admin Dose 5,000 UNIT; Start 09/08/16 at 08:30 Piperacillin Sod/ Tazobactam Sod 4.5 gm/Dextrose/ Water 50 ml @ 12.5 mls/hr Q6 IV; Start 09/08/16 at 08:30; Stop 09/08/16 at 08:30; Status DC Levofloxacin/ Dextrose/Premix 150 ml @ 100 mls/hr Q24 IV Last administered on t 08:06; Admin Dose 100 MLS/HR; Start 09/08/16 at 08:30 Scheduled Aspirin (Aspirin) 81 Mg Tablet 81 MG PO DAILY Carbamide Peroxide (Earwax Treatment Drops) 6.5 % Drops 1 DROP AFFECT_EAR DIRECTED Docusate Sodium (Colace) 100 Mg Capsule 200 MG PO QAM Fluticasone Propionate (Flonase Allergy Relief) 50 Mcg/Actuation Ray.susp 1 SPRAY NS QAM Glipizide (Glipizide) 5 Mg Tablet 2.5 MG PO QAM Levothyroxine (Levothyroxine) 175 Mcg Tablet 175 MCG PO QAM Magnesium Oxide (Magnesium Oxide) 400 Mg Tablet 400 MG PO TID Multivitamin/Iron/Folic Acid (Sentry Tablet) 1 Each Tablet 1 EACH PO DAILY Omeprazole (Omeprazole) 20 Mg Capsule.dr 20 MG PO BID Ranitidine (Ranitidine) 150 Mg Capsule 150 MG PO BID Thioridazine (Thioridazine) 10 Mg Tablet 20 MG PO BID Tolterodine Tartrate (Tolterodine Tartrate) 2 Mg Tablet 2 MG PO BID Scheduled PRN ([Thick it]) 1 DOSE PO DIRECTED PRN PRN thin liquids to prevent chokin honey thicken all liquids Acetaminophen (Acetaminophen) 325 Mg Capsule 650 MG PO Q6H PRN PRN For Pain Eucalyptus Oil/Menthol/Camphor (Vicks Vaporub Ointment) 1.2 %-2.6 %-4.8 % Oint...g. 1 APPLIC EXT TID PRN PRN For Cough Objective Findings Exam Vital Sign - Last Date Time Temp Pulse Resp B/P Pulse Ox O2 Delivery O2 Flow Rate FiO2 09/08/16 12:13 36.7 75 16 96/56 95 Room Air Intake and Output 09/07/16 09/07/16 09/08/16 Cumulative From/Thru 14:59 22:59 06:59 09/08/16 03:42 - 09/08/16 04:09 Intake Total 2999 ml 2999 ml Output Total 100 ml 100 ml Balance 2899 ml 2899 ml Intake IV Total 2999 ml 2999 ml Output Urine Total 100 ml 100 ml Objective Chronically ill-appearing man curled on his right side in bed. Nonverbal and no response to commands or questions. Vital signs noted. Skin is pale, warm and dry. Head and neck exam without acute focal findings. Neck without masses. Lungs clear anterolaterally, heart sounds regular with prominent 3/6 systolic murmur heard across the precordium. Lungs with dependent crackles. Extremities with diffuse muscular atrophy. Neurologic exam is limited due to his limited cooperative ability. Lab/Diagnostics Lab and Imaging results reviewed in detail in EMR. Time spent Total time 90 minutes; >50% face to face with patient and family, providing counselling regarding plans and recommendations, and in care coordination with his medical teams. Of the above total time, 35 minutes counseling for advanced care planning with the patient's caregivers at his [facility] and other healthcare providers Maciej Cohen MD Sep 08, 2016 13:48
--- NOTE | 2016-09-08 18:07 | NUR ---
Mentation Pt minimally verbal this am which is not Pt's baseline per caregivers at bedside, answering only one assessment question, MD made aware. Pt very difficult to understand/mumbles and caregiver at bedside reported that Pt more difficult to understand than baseline.
[2016-09-08] MEDS ORDERED: Non-Formulary Medication (Levothyroxine 175 MCG) PO SCH (18:20)
[2016-09-08] MEDS ORDERED: Glucose 40% Oral Gel 15 Gm Tube PO PRN (18:55)
[2016-09-08] MEDS: THIORIDAZINE 10 MG PO SCH (20:40)
[2016-09-08] MEDS: Pantoprazole 40 mg ER24 Tablet PO SCH (21:31)
[2016-09-08] MEDS: Insulin LISPRO 300 Unit/3 mL Inj SUBQ SCH (21:37)
[2016-09-09] VITALS (8 sets, daily range): BP systolic 107–129; BP diastolic 40–59; PULSE 63–91; RESP 12–18; O2SAT 93–100
[2016-09-09] MEDS: Heparin 5,000 Unit/mL Inj SUBQ SCH ×4 (00:50→23:59)
[2016-09-09] MEDS: 0.9% Sodium Chloride 1,000 ML IV SCH (00:50)
[2016-09-09] MEDS ORDERED: Diltiazem 5 mg/mL 5 mL Inj IVPUSH ONE (03:10)
[2016-09-09] MEDS: Diltiazem Inj 125 MG in 0.9% Sodium Chloride 100 ML, Pharmacy To Mix 1 EA IV SCH (04:30)
[2016-09-09 05:10] LABS: BASOPHILS % (AUTO) 0.2 % (0-3); EOSINOPHILS % (AUTO) 0.6 % (0-5); MONOCYTES % (AUTO) 8.9 % (4-12); Mean Corpuscular Hemoglobin 31.6 pg (27.0-35.0); Mean Corpuscular Volume 97.6 fL (81-100); NEUTROPHILS % (AUTO) 67.9 % (40-74); Platelet Count 116 bil/L (150-400)
[2016-09-09 05:32] LABS: Magnesium 1.8 mg/dL (1.6-2.6)
[2016-09-09] MEDS: Pantoprazole 40 mg ER24 Tablet PO SCH (06:54)
[2016-09-09] MEDS: Insulin LISPRO 300 Unit/3 mL Inj SUBQ SCH ×4 (08:00→22:00)
[2016-09-09] MEDS ORDERED: Potassium Chloride 20 mEq SR Tablet PO ONE (08:15)
[2016-09-09] MEDS ORDERED: Potassium Chloride 20 mEq/15 mL 15mL Oral Soln PO ONE (10:30)
[2016-09-09] MEDS: THIORIDAZINE 10 MG PO SCH ×2 (10:31→20:30)
[2016-09-09] MEDS: Nystatin 100,000 Unit/Gm 15 Gm Powder TOPICAL SCH ×2 (10:33→22:36)
[2016-09-09] MEDS: Fluticasone 0.05% 15 Spray/2 Gm 16 Gm Nasal Spray NASAL SCH ×2 (10:34→10:49)
--- NOTE | 2016-09-09 10:42 | PCM.PALLBR ---
Palliative Care Recommendation 89-year-old man with progressive decline (see below for further details) in setting of lifelong developmental delay, now with superimposed Alzheimer's dementia, atrial fibrillation with RVR, recurrent aspiration and pneumonias, dehydration, etc. Palliative medicine consulted to assist in determination of goals of care. Summary of palliative recommendations: -Symptom management (Pain/other)- appears comfortable again today. Continued management per hospitalist service. Palliative medicine will continue to follow and assist in symptom management as needed. -DPOA/Advanced Directives/POLST- no POA or advanced directive documentation. His caregivers are in the process of obtaining guardianship but that process is incomplete at this time. I reviewed his status with his caregivers, as well as with other palliative team members and with his medical/hospitalist team. In my opinion, aggressive resuscitation efforts (including CPR/defibrillation/intubation/mechanical ventilation) would be non-beneficial (and actually harmful) and ultimately futile in light of his multiple comorbidities. His hospitalist agrees with this assessment, as do the caregivers at his AF that I have spoken with. I have therefore changed his CODE STATUS to DO NOT RESUSCITATE/DO NOT INTUBATE, on the basis of futility and non-beneficence, though we will continue other care short of those terminal interventions. Today, I completed a POLST to be sent back to his AF with him at time of discharge reflecting this status. -Family/emotional support- will maintain contact with his caregivers at his AF and update them on his progress. Encouraged them to complete his documentation for obtaining guardianship as expeditiously as possible. Additional Medical Diagnoses with primary management by Hospitalist team include : #1 Acute Sepsis present on admission, treatment initiated #2 acute, new onset Atrial fibrillation with RVR, present on admission - improving #3 Acute recurrent pneumonia, present on admission, active #4 Acute Fluid depletion secondary to diarrhea and vomiting, present on admission, treatment initiated, improving #5 Acute Gastroenteritis, present on admission, evaluation ongoing #6 Tinea cruris, chronicity unknown, present on admission, treatment initiated #7 Chronic diabetes, uncontrolled on admission, active #8 Chronic hypothyroidism, resident on admission, evaluation ongoing Problems: End of Life Preferences DO NOT RESUSCITATE/DO NOT INTUBATE Goals of Care Recovery and return to his AF[facility] Patient is profoundly impaired cognitively and is nonverbal, so this represents his presumed goals Disposition As above Resuscitation Status Resuscitation Status: DNR/DNI:Do Not Resuscitate/Intubate POLST Updates/Changes Previous POLST?: No . Advanced Care Planning Address: POLST Pain: None Symptom management: Drowsiness/sleepiness Total time 40 minutes; >50% face to face with patient and/or family, providing counselling regarding plans and recommendations, and in care coordination with his/her medical teams. Over the above total time, 15 minutes counseling for advanced care planning with the patient's caregivers, and in completing updated documentation Palliative Brief Note Date of Service Sep 09, 2016 . Return to reevaluate patient. Prior to visiting, reviewed his updated records in the EMR in detail. On my arrival, one of his caregivers from his AFH, Keesha, was at bedside and feeding the patient. She says that he is better than earlier but still not back to his baseline. She says he will normally be more active and speak in short phrases or sentences, whereas now he is only using single words and is still but lethargic. He was eating heartily while I was there, and if Keesha would pause in feeding him, he would point at his plate or grab for food. When I left the room, he waved goodbye to me at Keesha's direction. He gave no indication of any trouble breathing, chest or abdominal pain, nausea or other. Keesha did tell me that he has been steadily deteriorating for some time. He has had multiple hospitalizations and ER visits over the last year, and after each he does not seem to quite bounce back to his prior level, and then deteriorates further each time. Over the last 3 months he has become essentially wheelchair-bound (after previously using a walker regularly) and he now needs 2 person assist for almost all activities and ADLs. Keesha also notes that he needs pureed food and asked that I made a point of ensuring that is what he got- I checked and his diet orders do indicate pured here. On exam, elderly gentleman, lying in bed and cooperating with being fed. Can moves his hands and arms but seems a little clumsy. Vital signs noted. Skin is pale, warm and dry. Lungs with dependent crackles. Heart sounds regular. Abdomen soft and nontender. Extremities with trace edema. Lab and imaging studies reviewed in detail. Maciej Cohen MD Sep 09, 2016 10:42
[2016-09-09 14:34] LABS: Magnesium 1.8 mg/dL (1.6-2.6)
--- NOTE | 2016-09-09 14:40 | NUR ---
Social Work: Readiness for Discharge D: Pt discussed in am rounds. Pt is not medically stable for discharge at this time. Pt expected to likely discharge over the weekend. EMR reviewed, pt's caregivers have been present at bedside and anticipate taking pt back home when ready. t/c to Rene Rodriguez ([phone]) pt's DDA CM; left message to discuss guardianship process and gather information about pt's current guardianship status. A: Pt who is dependent for all care. P: Anticipate pt to discharge home with resumed 24/7 care when ready; DAIRY TECHNOLOGIST to continue to follow and attempt contact with pt's CM LUIZ Styles
--- NOTE | 2016-09-09 15:48 | PCM.PNMED ---
Subjective Date of Service Sep 09, 2016 Subjective Overnight: Patient continues to have 3-4 loose stools overnight. No other acute event. BP remains in the low 100s/40s with NS running at 100mls/hr. Otherwise vital signs stable. Today: caregiver reports that the patient is not yet back to his baseline, but seems to improve a little. He has good PO intake and eats all his meals. He is still minimally verbal with caregiver at bedside. However, he is more active, smiling, and moving his hands more. He appears comfortable and nontoxic. Exam Vital Signs Vital Sign - Last Date Time Temp Pulse Resp B/P Pulse Ox O2 Delivery O2 Flow Rate FiO2 09/09/16 11:47 36.9 64 13 118/44 94 Room Air Intake and Output 09/08/16 09/08/16 09/09/16 Cumulative From/Thru 15:00 23:00 07:00 09/08/16 03:42 - 09/09/16 06:24 Intake Total 245 ml 1900 ml 852 ml 5996 ml Output Total 400 ml 900 ml 1400 ml Balance 245 ml 1500 ml -48 ml 4596 ml Intake Oral 440 ml 200 ml 640 ml IV Total 245 ml 1460 ml 652 ml 5356 ml Output Urine Total 400 ml 900 ml 1400 ml # Bowel Movements 1 6 7 Exam General: Pale and chronically-ill looking. Laying in bed in no apparent distress. Non-verbal but makes eye contact, smiling, and follows commands intermittently. HEENT: Normocephalic, mucous membranes dry, poor dentition. Cardiovascular: Regular rate and rhythm. III/ holosystolic murmur. Pulmonary: Mild diffuse crackles. No wheezes/rhonchi noted. Abdominal: Soft to palpation, nontender, bowel sounds present 4, hyperactive, no hepatosplenomegaly. Negative rebound. Extremities: No edema appreciated. No tenderness, asymmetry. Muscle atrophy to all 4 extremities Neuro: Alert but unable to assess further due to patient's mental status. Skin: no rash noted on the extremities. IVs and Medications Medications Reviewed: Medications were reviewed in detail Lab and Diagnostics Result Diagram: 09/09/16 2511 09/09/16 3324 Microbiology Blood cultures 2 pending C. diff negative Stool PCR pending X-Rays, CTs and MRIs PROCEDURE: X-RAY CHEST ONE VIEW, PORTABLE IMPRESSION: No acute cardiopulmonary disease. Dictated by: Praful Antonio RRA Interpreted: Sandy Damon MD on 09/08/2016 at 9:25 Transcribed by: DIALLO on 09/08/2016 at 9:25 Approved by: Sandy Damon MD, PhD on 09/08/2016 at 17:01 12-lead ECG Please see history of present illness Assessment & Plan 89-year-old gentleman 2 days of vomiting, one day of diarrhea, presents with atrial fibrillation and RVR, substantial fluid loss, believed to be septic, responding to fluids and rate control. #1 Acute Sepsis, present on admission, improved. - left shift, tachycardic, tachypneic, low grade fever (37.6), elevated serum lactic acid, altered mental status. Source: likely gastroenteritis. - Blood cultures pending. - Blood pressure has been low, but is stable, O2 sat is stable. - Continue to monitor vital signs for signs of shock. - IV fluid repletion with LR @ 100mls/hr. - Continue to monitor vital signs. - Treat the source as below #2 Acute Fluid depletion secondary to diarrhea and vomiting, present on admission, treatment initiated, improving - History of vomiting for 2 days, diarrhea and fecal incontinence for 1 day, tachycardia, dry mucous membranes, -Received 2 L IV normal saline the department, which improved tachycardia. -IV fluid changed from NS to LR at 100mls/hr. #3 Acute Gastroenteritis, present on admission, improved. - Foul-smelling watery diarrhea in the emergency department. - Stool PCR positive for Rotavirus. C. difficile PCR negative. - Review of his medication list indicates that patient takes Magnesium daily at home. This could also contribute to the diarrhea. Will hold home Magnesium. - Continue with fluid repletion as above #4 Acute encephalopathy, present on admission, improved. - Likely secondary to acute gastroenteritis and dehydration. - Neurological exam is difficult to assess and rely on caregiver to monitor improvement, but patient seems to be in better spirit today. - Fluid repletion as above. - Appreciate Speech Therapy's recommendations. Patient is on his normal pureed diet. - Continue to monitor symptoms. #5 Normocytic anemia, likely chronic, active. - Hgb drops from 13 to 10.4 this morning. However, the higher Hgb value could be due to volume contraction from the dehydration. - Review of his previous labs showed Hgb around 10. - Anemia likely due to chronic disease. - Occult blood ordered. #6 Acute, new onset Atrial fibrillation with rapid ventricular rate, present on admission, resolved. -Responsive to diltiazem push and drip. Patient converted to regular rate and rhythm on admission. HR has been stable. -Diltiazem ggt taper and discontinued. -Unable to evaluate if patient is symptomatic due to underlying mental status -Gen-Vasc2 score of 3. Has-bled score 2. -Afib is likely secondary to rapid heart rate from the acute dehydration. Therefore, will not start anticoagulation at this point. -Continue home ASA -On subq heparin. #7 Possible acute recurrent pneumonia, present on admission, unlikely. - Suspected PNA to be the source of the sepsis, but in retrospect, it is more likely GI source. - CXR negative per radiology. - Patient's Last ER visit for pneumonia was in05/2016 and was treated with outpatient Levaquin. - He received a dose of Zosyn in the ER and 1 dose of Levaquin on admission. - Respiratory status is intact, satting well on room air. - Procalcitonin 0.03. Therefore, unlikely to a bacterial infection and will stop Levaquin. #8 Tinea cruris, chronicity unknown, present on admission, treatment initiated - Red moist inguinal rash noted on admission. - Continue Nystatin powder twice a day #9 Chronic diabetes, uncontrolled on admission, active - Serum glucose was 220 on admission - A1c pending - Hold Glyburide - Continue medium correctional insulin scale #10 Chronic hypothyroidism, stable. - TSH and free T4 normal - Continue home thyroid medications #10 Overactive bladder, chronic, stable. - Continue home dose of Detrol #11 Possible schizophrenia, chronic. - Continue home Thioridazine #12 CODE STATUS: - No new guardianship paperwork since the last admission. - Palliative Care was consulted to help with goals of care. Their recommendations are greatly appreciated. - Per Keesha, the patient's women's health care nurse practitioner, he has been steadily deteriorating for some time and does not make a full recovery to his prior level after his multiple hospitalizations and ER visits over the last year. - In light of his multiple comorbidities, we agree with the palliative care team that any aggressive resuscitation efforts would be not beneficial to the patient. Therefore, patient will be DNR/DNI at this time. - Palliative care team will complete a POLST form and send back to his [facility]. DVT prophylaxis with SCDs, Heparin sub Q GI prophylaxis not indicated Pain management: Patient does not express pain, Tylenol for coverage of fever and discomfort. Disposition: likely 2+ days given his ongoing sepsis treatment. Pain Evaluation: Adequate Pain Control GI Prophylaxis: Not indicated VTE Prophylaxis: Sub-Q Heparin (Unfractionated), SCDs Resuscitation Status: DNR/DNI:Do Not Resuscitate/Intubate Attending Statement The patient was seen and examined together with Dr. Lynn on 09/09/2016 and I agree with the history, exam and plan as outlined in the note above. . Ken Lynn DO Sep 09, 2016 15:48 Helder Loyd MD Sep 10, 2016 14:41 deteriorates further each time. Over the last 3 months he has become essentially wheelchair-bound (after previously using a walker regularly) and he now needs 2 person assist for almost all activities and ADLs. Pain Evaluation: Adequate Pain Control GI Prophylaxis: Not indicated VTE Prophylaxis: Sub-Q Heparin (Unfractionated), SCDs Resuscitation Status: DNR/DNI:Do Not Resuscitate/Intubate Ken Lynn DO Sep 09, 2016 15:48
[2016-09-09] MEDS: Lansoprazole 30 mg ODTablet PO SCH (17:04)
[2016-09-09] MEDS: Lactated Ringer's 1,000 ML IV SCH (17:04)
--- NOTE | 2016-09-09 17:33 | NUR ---
Swallow Evaluation/medication administration/GI/ Pt swallow eval recommends crushed meds or nectar thick liquids. Several medications have been changed to liquid form. Pt sat upright during administration as he will dribble medications out of side of mouth. Tolerating medication administration well with no signs or symptoms of aspiration. No signs or symptoms of abdominal discomfort during shift. Some flatus. Pt appetite remains good.
[2016-09-10] VITALS (9 sets, daily range): BP systolic 103–139; BP diastolic 46–79; PULSE 58–154; RESP 16–23; O2SAT 92–96
[2016-09-10] MEDS: Diltiazem Inj 125 MG in 0.9% Sodium Chloride 100 ML, Pharmacy To Mix 1 EA IV SCH ×2 (02:12→14:29)
[2016-09-10] MEDS: Lactated Ringer's 1,000 ML IV SCH ×3 (03:57→23:57)
--- NOTE | 2016-09-10 05:53 | NUR ---
Diarrhea Patient had multiple watery stools overnight. Contact enteric precautions in place. Stool guaiac sample sent. Continue to monitor.
[2016-09-10 06:10] LABS: BASOPHILS % (AUTO) 0.2 % (0-3); EOSINOPHILS % (AUTO) 0.7 % (0-5); MONOCYTES % (AUTO) 7.2 % (4-12); Mean Corpuscular Hemoglobin 31.7 pg (27.0-35.0); Mean Corpuscular Volume 95.9 fL (81-100); NEUTROPHILS % (AUTO) 73.3 % (40-74); Platelet Count 112 bil/L (150-400)
--- NOTE | 2016-09-10 07:14 | NUR ---
A-fib/Diltiazem gtt Patient converted from sinus rhythm to afib with rates 120s-150s at 0650. Confirmed with telephone solicitor supervisor. Diltiazem gtt increased to 10 mg/hour. Report given to day RN. Continue to monitor.
[2016-09-10] MEDS: Insulin LISPRO 300 Unit/3 mL Inj SUBQ SCH ×4 (08:00→22:00)
[2016-09-10] MEDS: Lansoprazole 30 mg ODTablet PO SCH ×2 (08:56→16:55)
[2016-09-10] MEDS: Fluticasone 0.05% 15 Spray/2 Gm 16 Gm Nasal Spray NASAL SCH (09:02)
[2016-09-10] MEDS: Heparin 5,000 Unit/mL Inj SUBQ SCH ×2 (09:10→16:55)
--- NOTE | 2016-09-10 13:15 | NUR ---
Afib Pt converted to Afib at 0646 with Afib in low 100 to 110, Dilt started at 10mg per hour, per report. Tele reported pt in 150's at 0810 pt dilt increased to 12mg. Per tele pt still in 120s at 0830 pt Dilt increased to 15mg. No beta blockers available. Notified MD of pt HR and Dilt increases. At approximately 1000 pt HR below 100.
[2016-09-10] MEDS: Tolterodine ER 4 mg ER24 Capsule PO SCH (14:32)
[2016-09-10] MEDS: THIORIDAZINE 10 MG PO SCH ×2 (14:33→20:30)
[2016-09-10] MEDS: Nystatin 100,000 Unit/Gm 15 Gm Powder TOPICAL SCH ×2 (14:35→22:08)
--- NOTE | 2016-09-10 14:52 | NUR ---
Sinus Rhythm Patient converted to SR per tele at 1427, tele called at 1442 pt HR 60s. BP 92/48. Dilt titrated down to 10mg at 1450. MD notified. Care continues.
--- NOTE | 2016-09-10 15:07 | NUR ---
Restless Patient continues to increase restlessness. Pulled out IV earlier, IV therapy placed new IV. Pulling off sleeve to IV, pulling off pulse ox, trying to climb out of bed. allergy physician at bedside. This RN redirecting and encouraging pt. Notified MD of increased restlessness.
--- NOTE | 2016-09-10 15:16 | PCM.PNMED ---
Subjective Date of Service Sep 10, 2016 Subjective Overnight: Patient converted from sinus rhythm to afib with rates 120s-150s at 0650. Diltiazem gtt increased to 10 mg/hour. Patient had about 3 loose BM overnight. No other acute event. Today: Patient's caregiver reports that the patient seems to be doing better today. He is still minimally verbal, but seems more active and moving around more today. He appears to be agitated to the nurse as he has been pulling out the lines. He has good appetite and has a hard time drinking due to spilling his water everywhere. Patient remains in Afib this morning, HR around 120s at Diltiazem 15mg/hr. Blood pressure has been stable. Exam Vital Signs Vital Sign - Last Date Time Temp Pulse Resp B/P Pulse Ox O2 Delivery O2 Flow Rate FiO2 09/10/16 12:34 36.3 103 20 103/54 96 Room Air Intake and Output 09/09/16 09/09/16 09/10/16 Cumulative From/Thru 15:00 23:00 07:00 09/08/16 03:42 - 09/10/16 06:29 Intake Total 1966 ml 1414 ml 9376 ml Output Total 400 ml 600 ml 2400 ml Balance 1566 ml 814 ml 6976 ml Intake Oral 200 ml 840 ml IV Total 1326 ml 1214 ml 7896 ml TPN/PPN 640 ml 640 ml Output Urine Total 400 ml 600 ml 2400 ml # Bowel Movements 2 3 12 Exam General: Pale and chronically-ill looking. Laying in bed in no apparent distress. Non-verbal but makes eye contact, smiling, and follows commands intermittently. HEENT: Normocephalic, mucous membranes dry, poor dentition. Cardiovascular: Irregular irregular. III/ holosystolic murmur. Pulmonary: Mild scattered crackles. No wheezes/rhonchi noted. Abdominal: Soft to palpation, nontender, bowel sounds present 4, hyperactive, no hepatosplenomegaly. Negative rebound. : Lovelace in place. Extremities: No edema appreciated. No tenderness, asymmetry. Muscle atrophy to all 4 extremities Neuro: Alert but unable to assess further due to patient's mental status. Skin: no rash noted on the extremities. IVs and Medications Medications Reviewed: Medications were reviewed in detail Lab and Diagnostics Result Diagram: 09/10/1637 09/10/1637 Microbiology Blood cultures 2 pending C. diff negative Stool PCR pending X-Rays, CTs and MRIs PROCEDURE: X-RAY CHEST ONE VIEW, PORTABLE IMPRESSION: No acute cardiopulmonary disease. Dictated by: Praful Antonio RRA Interpreted: Sandy Damon MD on 09/08/2016 at 9:25 Transcribed by: DIALLO on 09/08/2016 at 9:25 Approved by: Sandy Damon MD, PhD on 09/08/2016 at 17:01 12-lead ECG Please see history of present illness Assessment & Plan 89-year-old gentleman 2 days of vomiting, one day of diarrhea, presents with atrial fibrillation and RVR, substantial fluid loss, believed to be septic, responding to fluids and rate control. #1 Acute Sepsis, present on admission, improved. - left shift, tachycardic, tachypneic, low grade fever (37.6), elevated serum lactic acid, altered mental status. Source: likely gastroenteritis. - Blood cultures pending. - Blood pressure has been low, but is stable, O2 sat is stable. - Continue to monitor vital signs for signs of shock. - IVF was stopped this morning due to improvement of hypotension. However, since patient still has intermittent diarrhea and cannot keep up with oral hydration, will resume LR @ 75mls/hr. - Continue to monitor vital signs. - Treat the source as below #2 Acute Fluid depletion secondary to diarrhea and vomiting, present on admission, treatment initiated, improving - History of vomiting for 2 days, diarrhea and fecal incontinence for 1 day, tachycardia, dry mucous membranes, -Received 2 L IV normal saline the department, which improved tachycardia. -IV fluid as above LR at 75mls/hr. #3 Acute Gastroenteritis, present on admission, improved. - Foul-smelling watery diarrhea in the emergency department. - Stool PCR positive for Rotavirus. C. difficile PCR negative. - Review of his medication list indicates that patient takes Magnesium daily at home. This could also contribute to the diarrhea. Will hold home Magnesium. - Continue with fluid repletion as above #4 Acute encephalopathy, present on admission, improved. - Likely secondary to acute gastroenteritis and dehydration. - Neurological exam is difficult to assess and has to rely on caregiver to monitor improvement, but patient seems to be in better spirit today. - Fluid repletion as above. - Appreciate Speech Therapy's recommendations. Patient is on his normal pureed diet. - Continue to monitor symptoms. - Will start Quetiapine 25mg HS to help with the agitation. Will continue to monitor behavior. #5 Normocytic anemia, likely chronic, stable. - Hgb drops from 13 to 10.4 on 09/09. However, the higher Hgb value could be due to volume contraction from the dehydration. - Review of his previous labs showed Hgb around 10. Today Hgb is stable at 10.9. - Anemia likely due to chronic disease. - Occult blood negative. #6 Acute, new onset Atrial fibrillation with rapid ventricular rate, present on admission, active. -Responsive to diltiazem push and drip. Patient converted to regular rate and rhythm on admission. - Patient converted to Afib early this morning, then converted back to normal sinus rhythm with Metoprolol 50mb BID. -Diltiazem ggt taper and discontinued. -Unable to evaluate if patient is symptomatic due to underlying mental status -Gen-Vasc2 score of 3. Has-bled score 2. -Afib is likely secondary to rapid heart rate from the acute dehydration. Therefore, will not start anticoagulation at this point. -Continue home ASA -On subq heparin. #7 Possible acute recurrent pneumonia, present on admission, unlikely. - Suspected PNA to be the source of the sepsis, but in retrospect, it is more likely GI source. - CXR negative per radiology. - Patient's Last ER visit for pneumonia was in05/2016 and was treated with outpatient Levaquin. - He received a dose of Zosyn in the ER and 1 dose of Levaquin on admission. - Respiratory status is intact, satting well on room air. - Procalcitonin 0.03. Therefore, unlikely to a bacterial infection and Levaquin was D/C. #8 Tinea cruris, chronicity unknown, present on admission, treatment initiated - Red moist inguinal rash noted on admission. - Continue Nystatin powder twice a day #9 Chronic diabetes, uncontrolled on admission, active - Serum glucose was 220 on admission - A1c pending - Hold Glyburide - Continue medium correctional insulin scale #10 Chronic hypothyroidism, stable. - TSH and free T4 normal - Continue home thyroid medications #10 Overactive bladder, chronic, stable. - Continue home dose of Detrol #11 Alzheimer's dementia, chronic. - Continue home Thioridazine. - Will start Quetiapine 25mg HS to help with agitation. - Will keep Lovelace in place for now since he is back on IVF, but will consider D/ C it tomorrow. #12 CODE STATUS: - No new guardianship paperwork since the last admission. - Palliative Care was consulted to help with goals of care. Their recommendations are greatly appreciated. - Per Keesha, the patient's care program resident, he has been steadily deteriorating for some time and does not make a full recovery to his prior level after his multiple hospitalizations and ER visits over the last year. - In light of his multiple comorbidities, we agree with the palliative care team that any aggressive resuscitation efforts would be not beneficial to the patient. Therefore, patient will be DNR/DNI at this time. - Palliative care team will complete a POLST form and send back to his [facility]. DVT prophylaxis with SCDs, Heparin sub Q GI prophylaxis not indicated Pain management: Patient does not express pain, Tylenol for coverage of fever and discomfort. Disposition: likely 2+ days given his ongoing sepsis treatment. Pain Evaluation: Adequate Pain Control GI Prophylaxis: Not indicated VTE Prophylaxis: Sub-Q Heparin (Unfractionated), SCDs Resuscitation Status: DNR/DNI:Do Not Resuscitate/Intubate Attending Statement The patient was seen and examined together with Dr. Lynn on 09/10/2016 and I agree with the history, exam and plan as outlined in the note above. . Ken Lynn DO Sep 10, 2016 15:16 Helder Loyd MD Sep 12, 2016 09:35
--- NOTE | 2016-09-10 15:47 | NUR ---
Diltiazem Titrated Dilt down by increments of 30 minutes. Per tele pt SR 60s. BP 107/45. Care continues.
--- NOTE | 2016-09-10 15:48 | NUR ---
[facility] Signed
--- NOTE | 2016-09-10 18:04 | NUR ---
New personal care attendant New caregiver arrived at approximately 1745. Pt still agitated and pulling at all lines. Encouraging pt to leave lines in place. Care continues.
[2016-09-11] VITALS (7 sets, daily range): BP systolic 114–146; BP diastolic 38–70; PULSE 57–67; RESP 16–20; O2SAT 93–96
[2016-09-11] MEDS: Heparin 5,000 Unit/mL Inj SUBQ SCH ×3 (00:08→17:48)
[2016-09-11 05:43] LABS: BASOPHILS % (AUTO) 0.2 % (0-3); EOSINOPHILS % (AUTO) 1.1 % (0-5); MONOCYTES % (AUTO) 7.2 % (4-12); Mean Corpuscular Hemoglobin 31.8 pg (27.0-35.0); Mean Corpuscular Volume 95.5 fL (81-100); NEUTROPHILS % (AUTO) 60.7 % (40-74); Platelet Count 95 bil/L (150-400)
[2016-09-11 06:02] LABS: Magnesium 1.5 mg/dL (1.6-2.6)
--- NOTE | 2016-09-11 06:23 | NUR ---
GI/Home Medication Pt has continued to be incontinent of multiple and frequent yellow, loose stools and has had multiple full linen changes. Caregiver in room was unaware of the contact precautions when coming onto shift. Caregiver was educated on proper handwashing and the use of gloves and gowns to prevent further spread of the rotavirus. Pt's home medication was unavailable and pt did not receive it this evening.
[2016-09-11] MEDS: Tolterodine ER 4 mg ER24 Capsule PO SCH (07:58)
[2016-09-11] MEDS: Lansoprazole 30 mg ODTablet PO SCH ×3 (07:59→18:04)
[2016-09-11] MEDS: Fluticasone 0.05% 15 Spray/2 Gm 16 Gm Nasal Spray NASAL SCH (08:00)
[2016-09-11] MEDS: Insulin LISPRO 300 Unit/3 mL Inj SUBQ SCH ×4 (08:00→22:00)
[2016-09-11] MEDS: Nystatin 100,000 Unit/Gm 15 Gm Powder TOPICAL SCH ×2 (08:01→21:15)
[2016-09-11] MEDS: THIORIDAZINE 10 MG PO SCH ×2 (09:35→21:14)
--- NOTE | 2016-09-11 09:42 | NUR ---
Verbalization/Weakness/Medication Pt is sleeping off and on. Takes many prompts to awaken for medications. fuel cell binder stated his baseline is more talkative and easier to arouse. Pt had several bouts of diarrhea last night per shift. Pt too weak to move on own, two person full assist to reposition in bed. Pt does not follow commands to turn this shift. After repositioning moves to left side. Pt home medication for Thiordazine in home package sent to pharmacy for repackaging. Pharmacy recommended personal care givers bring home medication daily for BID. fuel cell binder at bedside assisting with care. Care continues.
--- NOTE | 2016-09-11 14:58 | PCM.PNMED ---
Subjective Date of Service Sep 11, 2016 Subjective Patient is quite somnolent this morning. Caregiver is present and provides some history. Patient is more tired than normal and seems to be feeling more poorly related to numerous bouts of diarrhea last night. He was able to awaken to eat breakfast this morning and she would like for him to try to eat lunch soon. Overnight, the patient had multiple episodes of diarrhea. IV fluids continued as he as unable to drink sufficient fluids to make up the losses. Exam Vital Signs Vital Sign - Last Date Time Temp Pulse Resp B/P Pulse Ox O2 Delivery O2 Flow Rate FiO2 09/11/16 11:30 37.0 66 20 122/49 94 Room Air Intake and Output 09/10/16 09/10/16 09/11/16 Cumulative From/Thru 15:00 23:00 07:00 09/08/16 03:42 - 09/11/16 06:45 Intake Total 190 ml 310 ml 908 ml 14084 ml Output Total 500 ml 2900 ml Balance 190 ml 310 ml 408 ml 7884 ml Intake Oral 100 ml 940 ml IV Total 190 ml 310 ml 808 ml 9204 ml TPN/PPN 640 ml Output Urine Total 500 ml 2900 ml # Bowel Movements 3 7 22 Exam General: Pale and chronically-ill looking. Laying in bed in no apparent distress. Non-verbal but makes eye contact, smiling, and does not follow commands today. HEENT: Normocephalic, mucous membranes dry, poor dentition. Cardiovascular: Irregular irregular. III/ holosystolic murmur. Pulmonary: Mild scattered crackles. No wheezes/rhonchi noted. Abdominal: Soft to palpation, nontender, bowel sounds present 4, hyperactive : Lovelace in place. Extremities: No edema appreciated. No tenderness, asymmetry. Muscle atrophy to all 4 extremities Pulse: radial present and equal bilaterally, dorsalis pedis present and equal bilaterally Neuro: Alert but unable to assess further due to patient's mental status. Skin: no rash noted on the extremities. IVs and Medications Medications Reviewed: Medications were reviewed in detail Lab and Diagnostics Result Diagram: 09/11/16 0503 09/11/16 0503 X-Rays, CTs and MRIs PROCEDURE: X-RAY CHEST ONE VIEW, PORTABLE IMPRESSION: No acute cardiopulmonary disease. Dictated by: Praful VIDAL Interpreted: Sandy Damon MD on 09/08/2016 at 9:25 Transcribed by: DIALLO on 09/08/2016 at 9:25 Assessment & Plan 89-year-old gentleman 2 days of vomiting, one day of diarrhea, presents with atrial fibrillation and RVR, substantial fluid loss, believed to be septic, responding to fluids and rate control. Hospital day #4 1. Acute Sepsis, present on admission, improved. - Criteria met: tachycardia (116), elevated lactic acid (3.0), likely GI source , encephalopathy. - Viral gastroenteritis (rotavirus) found. - Lactic acid has normalized. No leukocytosis noted on CBC. - Continuing IV fluids and other supportive care. 2. Acute fluid depletion secondary to gastroenteritis, present on admission, ongoing. - Diarrhea ongoing. - IV fluids LR with rate increased to 100 ml/hr as patient has almost no PO intake of fluids. 3. Acute Gastroenteritis secondary to rotavirus, present on admission, ongoing. - Continue IV fluids. - Monitoring electrolytes with BMP and magnesium labs. Will replete as needed. 4. Acute encephalopathy, present on admission, improved. - Likely secondary to acute gastroenteritis and dehydration. - Fluid repletion as above. - Appreciate Speech Therapy's recommendations. Patient is on his normal pureed diet. - Continue Quetiapine 25mg HS to help with the agitation. Will continue to monitor behavior. 5. Normocytic anemia, likely chronic, stable. - Hgb drops from 13 to 10.4 on 09/09. However, the higher Hgb value could be due to volume contraction from the dehydration. - Review of his previous labs showed Hgb around 10. Today Hgb is stable at 10.9. - Anemia likely due to chronic disease. - Continue to monitor CBC. 6. Acute new onset Atrial fibrillation with rapid ventricular rate, present on admission, improved. - Gen-Vasc2 score of 3. Has-bled score 2. - Afib is likely secondary to rapid heart rate from the acute dehydration. Therefore, will not start anticoagulation at this point. - Continue home ASA. 7. Possible acute recurrent pneumonia, present on admission, unlikely. - Suspected PNA to be the source of the sepsis, but in retrospect, it is more likely GI source. - Antibiotics discontinued. 8. Inguinal tinea cruris, chronicity unknown, present on admission, treatment initiated - Continue Nystatin powder twice a day 9. Chronic diabetes, controlled, presume stable. - A1c 7.0 this admission. - Patient has not required any insulin. - Hold Glyburide while patient is not a baseline diet so an not to encourage hypoglycemia. - Continue medium correctional insulin scale as needed. 10. Chronic hypothyroidism, stable. - Continue home thyroid medications. 11. Overactive bladder, chronic, stable. - Continue home dose of Detrol - Lovelace catheter remains in place while patient receiving IV fluids and having decreased mentation. 12. Alzheimer's dementia, chronic, presume stable. - Continue home Thioridazine. - Continue Quetiapine 25mg HS to help with agitation. 13. CODE STATUS: - No new guardianship paperwork since the last admission. - Palliative Care was consulted to help with goals of care. Their recommendations are greatly appreciated. - Per Keesha, the patient's child care provider, he has been steadily deteriorating for some time and does not make a full recovery to his prior level after his multiple hospitalizations and ER visits over the last year. - In light of his multiple comorbidities, we agree with the palliative care team that any aggressive resuscitation efforts would be not beneficial to the patient. Therefore, patient will be DNR/DNI at this time. - Palliative care team will complete a POLST form and send back to his [facility]. Disposition: If diarrhea resolves and patient able to demonstrate sufficient PO intake, can be discharged. The hope will be for d/c tomorrow. GI Prophylaxis: Not indicated VTE Prophylaxis: Sub-Q Heparin (Unfractionated), SCDs Resuscitation Status: DNR/DNI:Do Not Resuscitate/Intubate Attending Statement The patient was seen and examined together with Dr. Negro on 09/11/2016 and I agree with the history, exam and plan as outlined in the note above. . Serene Negro DO Sep 11, 2016 14:58 Helder Loyd MD Sep 12, 2016 09:35 multiple hospitalizations and ER visits over the last year. - In light of his multiple comorbidities, we agree with the palliative care team that any aggressive resuscitation efforts would be not beneficial to the patient. Therefore, patient will be DNR/DNI at this time. - Palliative care team will complete a POLST form and send back to his [facility]. Disposition: If diarrhea resolves and patient able to demonstrate sufficient PO intake, can be discharged. The hope will be for d/c tomorrow. GI Prophylaxis: Not indicated VTE Prophylaxis: Sub-Q Heparin (Unfractionated), SCDs Resuscitation Status: DNR/DNI:Do Not Resuscitate/Intubate Serene Negro DO Sep 11, 2016 14:58
[2016-09-11] MEDS ORDERED: Magnesium Sulf 2 Gm/50mL Water 2 GM in IV Premix 1 EACH IV ONE (15:10)
[2016-09-11] MEDS: Lactated Ringer's 1,000 ML IV SCH (15:24)
--- NOTE | 2016-09-11 15:34 | NUR ---
plaster caster change New color technician at bedside with pt. Pt sleeping at this time. Another change in caregivers at approximately 1700. Care continues.
--- NOTE | 2016-09-11 18:05 | NUR ---
Prevacid Unable to give to administer Prevacid-ODT at 1630. Unable to remain awake enough to swallow medication. Care continues.
[2016-09-12 00:07] VITALS: BP 122/60; PULSE 57; RESP 20; O2SAT 96
[2016-09-12] MEDS: Heparin 5,000 Unit/mL Inj SUBQ SCH ×2 (01:00→08:57)
[2016-09-12] MEDS: Lactated Ringer's 1,000 ML IV SCH ×2 (01:38→11:48)
[2016-09-12 04:18] VITALS: BP 124/66; PULSE 57; RESP 16; O2SAT 94
--- NOTE | 2016-09-12 05:12 | NUR ---
evening medications patient compliant with evening medications in pudding. turned every 2 hours for optimal skin care. isolation precautions in place
[2016-09-12 05:32] LABS: BASOPHILS % (AUTO) 0.2 % (0-3); EOSINOPHILS % (AUTO) 2.2 % (0-5); MONOCYTES % (AUTO) 6.9 % (4-12); Mean Corpuscular Hemoglobin 31.7 pg (27.0-35.0); Mean Corpuscular Volume 94.3 fL (81-100); NEUTROPHILS % (AUTO) 57.3 % (40-74); Platelet Count 101 bil/L (150-400)
[2016-09-12 05:45] LABS: Magnesium 1.7 mg/dL (1.6-2.6); Phosphorus 2.6 mg/dL (2.5-4.9)
--- NOTE | 2016-09-12 06:00 | NUR ---
poor po intake patient with poor po intake. offered numerous food items including his favorite vanilla pudding.
[2016-09-12 07:30] VITALS: PULSE 56
[2016-09-12] MEDS: Insulin LISPRO 300 Unit/3 mL Inj SUBQ SCH ×2 (08:00→11:50)
[2016-09-12 08:42] VITALS: BP 150/86; PULSE 57; RESP 20; O2SAT 94
[2016-09-12] MEDS: Fluticasone 0.05% 15 Spray/2 Gm 16 Gm Nasal Spray NASAL SCH (08:57)
[2016-09-12] MEDS: Nystatin 100,000 Unit/Gm 15 Gm Powder TOPICAL SCH (08:58)
[2016-09-12 10:36] VITALS: PULSE 60
[2016-09-12] MEDS: THIORIDAZINE 10 MG PO SCH (11:48)
[2016-09-12] MEDS ORDERED: METO25TA6 PO (11:54)
--- NOTE | 2016-09-12 11:59 | PCM.DIMED ---
Ken Lynn DO 09/12/16 1148: Discharge Instructions Date of Service Sep 12, 2016 Dates of Hospitalization Sep 08, 2016 at 02:57 Discharge Diagnosis Discharge Diagnosis 1. Acute Severe Sepsis, present on admission, resolved. 2. Acute fluid depletion secondary to gastroenteritis, present on admission, improved. 3. Acute Gastroenteritis secondary to rotavirus, present on admission, improved. 4. Acute encephalopathy, present on admission, resolved. 5. Normocytic anemia, likely chronic, stable. 6. Acute new onset Atrial fibrillation with rapid ventricular rate, present on admission, improved. 7. Possible acute recurrent pneumonia, present on admission, unlikely. 8. Inguinal tinea cruris, chronicity unknown, present on admission, treatment initiated. 9. Chronic diabetes, controlled, presume stable. 10. Chronic hypothyroidism, stable. 11. Overactive bladder, chronic, stable. 12. Alzheimer's dementia, chronic, presume stable. Medication Instructions - We add a new medication called Metoprolol to help control your heart rate. Please take it as directed. - Resume all other medications. Test Results Stool viral PCR positive for Rotavirus. Diet Diabetic Activity Limited until seen by PCP Call your provider Fever or Chills, Bleeding, Vomitting, Excessive diarrhea, Weakness (unilateral) Patient Instructions You were found to have a viral gastroenteritis (also known as stomach flu), which led to severe dehydration and irregular heart beats (atrial fibrillation). Your diarrhea improved at discharge as you have not had any loose stool in the last 24 hours. Your heart rate and rhythm have been under control as well. Please make sure that you drink plenty of fluid at home to keep yourself hydrated. Go to the ER if you develop severe diarrhea again, fever, chills, nausea, vomiting, or change in mental status. Follow-up Provider: Marco Watt MD Follow-up with PCP in: 1 week Thony Rizzo MD 09/13/16 1513: Discharge Instructions Attending's Statement The patient was seen and examined together with Dr. Lynn on 09-12-16 and I agree with the history, exam and plan as outlined in the note above. Ken Lynn DO Sep 12, 2016 11:48 Thony Rizzo MD Sep 13, 2016 15:13
[2016-09-12 12:00] VITALS: BP 138/67; PULSE 56; RESP 16; O2SAT 95
--- NOTE | 2016-09-12 14:10 | NUR ---
Discharge He discharged at 1410 with his male caregiver. The paperwork was discussed with the caregiver and given to him. His questions were answered. Home medications from the pharmacy and the medication drawer were retrieved and given to the caregiver. IV and telemetry discontinued intact. Two-person assist transfer. All his belongings were taken with him. His Lovelace was discontinued intact per MD orders at about 1100. He urinated 75 mls using the urinal. A follow up bladder scan at 1300 revealed no urinary retentions. It was clarified with Dr. Lynn that he did not need to be on any special precautions other than standard precautions and washing hands post care/contact. This was communicated to the caregivers.
--- NOTE | 2016-09-12 14:45 | NUR ---
Case Management: Late entry: Spoke with CLAUDIO Isaacs - patient has had no stools today, and she has spoken with MD re: any need for special precautions with regard to stool, has informed patient's caregiver that good handwashing is required after dealing with stool. Addis Martinez RN
--- NOTE | 2016-09-12 15:08 | NUR ---
Follow up Call Spoke with Makenna (Director) on the phone from the [facility] at . There was concern that he may have been sent home with C-diff. Clarified that he did not have C-diff as he tested negative for this. Told her that he tested positive for Rotavirus and re-explained that just standard precautions was necessary for his care. She thanked this nurse for the clarification and said she was relieved.
--- NOTE | 2016-09-12 16:09 | NUR ---
Social Work Note: Discharge ( Late Entry) Data& Assessment: EMR reviewed. Per pt is medically ready for discharge. Diego Villavicencio is a 89 year old male admitted on 09/08/2016 for A-FIB with RVR/Nausea/Vomiting/Diarrhea. Per pt is medically improved and ready for discharge. DANETTE spoke with [facility] CM Rene Rodriguez ([phone]) to updated him on pt discharge and address any unmet needs. DC paperwork faxed to pt CM per his request. DANETTE also spoke with Rehab manager mechanical maintenance Makenna Acharya ([phone]) who oversees pt "Supportive Living" with 24/7 caregiving through their agency. Clinicals faxed and follow up care plan discussed to Rehab manager mechanical maintenance, Pt RN also spoke with Director to answer any clinical questions. Pt Caregiver at bedside was also notified of pt discharge, transporting pt home privately and denies any other needs. All updated and agreeable to plan. No other discharge needs identified. Plan: Per pt is medically ready for discharge home to supportive living with 24/7 caregivers through [facility] via [facility]. All updated and agreeable to plan. No other discharge needs identified. LUIZ Turpin
--- NOTE | 2016-09-12 16:34 | PCM.DC.MED ---
Discharge Summary Date of Service Sep 12, 2016 Dates of Hospitalization Date of Hospital Admission Sep 08, 2016 at 02:57 Date of Discharge: Sep 12, 2016 Providers: Admitting Physician: Chriss Kelley MD Primary Care Physician: Marco Watt MD Attending Physician: Chriss Kelley MD Diagnosis at Time of Discharge Diagnosis at Time of Discharge 1. Acute Severe Sepsis, present on admission, resolved. 2. Acute fluid depletion secondary to gastroenteritis, present on admission, improved. 3. Acute Gastroenteritis secondary to rotavirus, present on admission, improved. 4. Acute encephalopathy, present on admission, resolved. 5. Normocytic anemia, likely chronic, stable. 6. Acute new onset Atrial fibrillation with rapid ventricular rate, present on admission, improved. 7. Possible acute recurrent pneumonia, present on admission, unlikely. 8. Inguinal tinea cruris, chronicity unknown, present on admission, treatment initiated. 9. Chronic diabetes, controlled, presume stable. 10. Chronic hypothyroidism, stable. 11. Overactive bladder, chronic, stable. 12. Alzheimer's dementia, chronic, presume stable. Procedures XRay, CTs & MRIs PROCEDURE: X-RAY CHEST ONE VIEW, PORTABLE IMPRESSION: No acute cardiopulmonary disease. Dictated by: Praful Antonio RRValeria Interpreted: Sandy Damon MD on 09/08/2016 at 9:25 Transcribed by: DIALLO on 09/08/2016 at 9:25 Brief History Per admission H&P: Patient is an 82-year-old gentleman with medical history significant for recurrent pneumonia, Alzheimer's, arthritis, diabetes, anxiety, hard of hearing , thyroid disease, presented to the emergency department via EMS from his adult family home with vomiting onset since yesterday, he has bowel incontinence which started today as watery diarrhea. EMS found the patient to be in atrial fibrillation with RVR rate 200, blood pressure 106/56, with otherwise normal vital signs, he received diltiazem en route as well as in the emergency department. He was substantially fecally incontinent in the emergency department. His caregiver reports that he has had decreased oral intake the last couple of days, and routinely discarded for pneumonia "we're and here almost once a month." In the ER had a normal white count, however 92.5% neutrophils, hemoglobin of 13 , BUN 34, creatinine 1.3, glucose 220, troponin was negative, magnesium is normal, pro-calcitonin 0.03, lactic acid 3.0, his urine pH of 6, specific gravity 1.02, trace leukocyte esterase, few epithelial cells, few bacteria seen , 6-10 white blood cells. EKG showed heart rate of 133, QTC 469, "atrial fibrillation, old inferior and lateral infarct" Chest x-ray in the emergency department was interpreted by the ER physician as having a left basilar infiltrate. Hospital Course 89-year-old gentleman 2 days of vomiting, one day of diarrhea, presents with atrial fibrillation and RVR, substantial fluid loss, believed to be septic, responding to fluids and rate control. Hospital day #5 1. Acute Severe Sepsis, present on admission, improved. - Criteria met: tachycardia (116), elevated lactic acid (3.0), likely GI source , encephalopathy. - Viral gastroenteritis (rotavirus) found. - Lactic acid has normalized. No leukocytosis noted on CBC. - Patient was on IV fluids due to poor PO hydration, but caregiver noted that he drank fluid better with flavor drops. 2. Acute fluid depletion secondary to gastroenteritis, present on admission, improved. - Diarrhea improved. No diarrhea for >24 hours at discharge. - IV fluids LR with rate increased to 100 ml/hr as patient has almost no PO intake of fluids. - Encouraged oral fluid at discharge. Caregiver was comfortable with this. 3. Acute Gastroenteritis secondary to rotavirus, present on admission, ongoing. - IV fluids. - Electrolytes and magnesium levels have been stable. 4. Acute encephalopathy, present on admission, improved. - Likely secondary to acute gastroenteritis and dehydration. - Fluid repletion as above. - Appreciate Speech Therapy's recommendations. Patient is on his normal pureed diet. - Continue Quetiapine 25mg HS to help with the agitation in the hospital. 5. Normocytic anemia, likely chronic, stable. - Hgb drops from 13 to 10.4 on 09/09. However, the higher Hgb value could be due to volume contraction from the dehydration. - Review of his previous labs showed Hgb around 10. Today Hgb is stable at 10.9. - Anemia likely due to chronic disease. 6. Acute new onset Atrial fibrillation with rapid ventricular rate, present on admission, improved. - Gen-Vasc2 score of 3. Has-bled score 2. - Afib is likely secondary to rapid heart rate from the acute dehydration. Therefore, will not start anticoagulation at this point. - Continue home ASA. - Start Metoprolol 25mg BID. 7. Possible acute recurrent pneumonia, present on admission, unlikely. - Suspected PNA to be the source of the sepsis, but in retrospect, we did not think the patient had pneumonia. Sepsis source was GI. - Antibiotics discontinued. 8. Inguinal tinea cruris, chronicity unknown, present on admission, treatment initiated - Continue Nystatin powder twice a day 9. Chronic diabetes, controlled, presume stable. - A1c 7.0 this admission. - Patient has not required any insulin. - Hold Glyburide while patient is not a baseline diet so an not to encourage hypoglycemia. Resume at discharge. - Continue medium correctional insulin scale as needed. 10. Chronic hypothyroidism, stable. - Continue home thyroid medications. 11. Overactive bladder, chronic, stable. - Continue home dose of Detrol - Lovelace catheter remains in place while patient receiving IV fluids and having decreased mentation. 12. Alzheimer's dementia, chronic, presume stable. - Continue home Thioridazine. - Continue Quetiapine 25mg HS to help with agitation in the hospital. 13. CODE STATUS: - No new guardianship paperwork since the last admission. - Palliative Care was consulted to help with goals of care. Their recommendations are greatly appreciated. - Per Keesha, the patient's direct care provider, he has been steadily deteriorating for some time and does not make a full recovery to his prior level after his multiple hospitalizations and ER visits over the last year. - In light of his multiple comorbidities, we agree with the palliative care team that any aggressive resuscitation efforts would be not beneficial to the patient. Therefore, patient will be DNR/DNI at this time. - Palliative care team completed a POLST form and send back to his [facility]. Exam Vital Signs (Last) Date Time Temp Pulse Resp B/P Pulse Ox O2 Delivery O2 Flow Rate FiO2 09/12/16 12:00 37.2 56 16 138/67 95 Room Air 09/12/16 00:07 2.00 Exam General: Pale and chronically-ill looking. Laying in bed in no apparent distress. Non-verbal but makes eye contact, smiling, and does not follow commands today. HEENT: Normocephalic, mucous membranes dry, poor dentition. Cardiovascular: Regular rate and rhythm. III/ holosystolic murmur. Pulmonary: Mild scattered crackles. No wheezes/rhonchi noted. Abdominal: Soft to palpation, nontender, bowel sounds present 4, hyperactive : Lovelace in place. Extremities: No edema appreciated. No tenderness, asymmetry. Muscle atrophy to all 4 extremities Pulse: radial present and equal bilaterally, dorsalis pedis present and equal bilaterally Neuro: Alert but unable to assess further due to patient's mental status. Skin: no rash noted on the extremities. Test 09/08/16 01:55 09/08/16 03:30 09/09/16 04:58 09/12/16 05:00 Prothrombin Time 10.7sec (8.1-12.5) Prothromb Time International Ratio 1.00ratio Hemoglobin A1c 7.0% (4.8-5.6) Troponin T 0.010ug/L (0.0-0.011) Procalcitonin 0.03ng/mL (0.00-0.08) Thyroid Stimulating Hormone (TSH) 0.522uIU/mL (0.450-4.500) Free Thyroxine 1.31ng/dL (0.82-1.77) Urine Color Yellow (YELLOW) Urine Appearance Clear (CLEAR,HAZY) Urine pH 5.0 (5.0-8.0) Urine Specific [place] 1.030 (1.003-1.035) Urine Protein Negativemg/dL (NEG,TRACE) Urine Glucose (UA) Negativemg/dL (NEGATIVE) Urine Ketones 15mg/dL (NEGATIVE) Urine Occult Blood Trace (NEGATIVE) Urine Nitrite Negative (NEGATIVE) Urine Bilirubin Negative (NEGATIVE) Urine Urobilinogen Normalmg/dL (NORMAL) Urine Leukocyte Esterase Negative (NEGATIVE) Urine RBC 3-10/hpf (0-2) Urine WBC 0-5/hpf (0-5) Urine Epithelial Cells Few/hpf (NONE-MOD) Urine Crystals Amorphous urates (NONE Urine Bacteria Few/hpf (NONE-FEW) Urine Hyaline Casts None/lpf (NONE) Urine Granular Casts None seen (NONE SEEN) Urine Waxy Casts None seen (NONE SEEN) Urine Red Blood Cell Casts None seen (NONE SEEN) Urine White Blood Cell Casts None seen (NONE SEEN) Urine Mucus Present (None Seen) Urine Trichomonas None seen (NONE SEEN) Urine Yeast None (NONE SEEN) Urinalysis Comment None Urine Culture Reflexed Not indicated Lactic Acid Level 0.8mmol/L (0.4-2.0) White Blood Count 5.1th/mm3 (3.8-10.1) Red Blood Count 3.00mil/mm3 (4.40-5.80) Hemoglobin 9.5g/dL (13.8-17.2) Hematocrit 28.3% (41.0-50.0) Mean Corpuscular Volume 94.3fL (81-100) Mean Corpuscular Hemoglobin 31.7pg (27.0-35.0) Mean Corpuscular Hemoglobin Concent 33.6% (32.0-37.0) Red Cell Distribution Width 13.2% (12.3-15.4) Platelet Count 101bil/L (150-400) Neutrophils (%) (Auto) 57.3% (40-74) Lymphocytes (%) (Auto) 33.0% (14-46) Monocytes (%) (Auto) 6.9% (4-12) Eosinophils (%) (Auto) 2.2% (0-5) Basophils (%) (Auto) 0.2% (0-3) Sodium Level 136mEq/L (134-144) Potassium Level 3.5mEq/L (3.5-5.2) Chloride Level 104mEq/L (97-108) Carbon Dioxide Level 21mmol/L (18-29) Blood Urea Nitrogen 14mg/dL (8-27) Creatinine 0.60mg/dL (0.76-1.27) Estimat Glomerular Filtration Rate 135mL/min (>59) Glucose Level 112mg/dL (60-99) Calcium Level 8.0mg/dL (8.5-10.1) Phosphorus Level 2.6mg/dL (2.5-4.9) Magnesium Level 1.7mg/dL (1.6-2.6) Total Bilirubin 0.3mg/dL (0.0-1.2) Aspartate Amino Transf (AST/SGOT) 24U/L (0-50) Alanine Aminotransferase (ALT/SGPT) 18U/L (0-44) Alkaline Phosphatase 65U/L (25-160) Total Protein 6.1g/dL (6.4-8.4) Albumin 2.7g/dL (3.4-5.0) Microbiology Results Stool Viral PCR: positive for Rotavirus A Negative C. diff PCR Negative stool occult blood Blood cultures: no growth at 2 days. Discharge Medications Discharge Medications Aspirin (Aspirin) 81 Mg Tablet 81 MG PO DAILY (Reported) Carbamide Peroxide (Earwax Treatment Drops) 6.5 % Drops 1 DROP AFFECT_EAR DIRECTED (Reported) Docusate Sodium (Colace) 100 Mg Capsule 200 MG PO QAM (Reported) Fluticasone Propionate (Flonase Allergy Relief) 50 Mcg/Actuation [place].susp 1 SPRAY NS QAM (Reported) Glipizide (Glipizide) 5 Mg Tablet 2.5 MG PO QAM (Reported) Levothyroxine (Levothyroxine) 175 Mcg Tablet 175 MCG PO QAM (Reported) Magnesium Oxide (Magnesium Oxide) 400 Mg Tablet 400 MG PO TID (Reported) Metoprolol Tartrate (Metoprolol Tartrate) 25 Mg Tablet 25 MG PO BID Prescribed by: KEN RUBALCAVA DO Multivitamin/Iron/Folic Acid (Sentry Tablet) 1 Each Tablet 1 EACH PO DAILY ( Reported) Omeprazole (Omeprazole) 20 Mg Capsule.dr 20 MG PO BID (Reported) Ranitidine (Ranitidine) 150 Mg Capsule 150 MG PO BID (Reported) Thioridazine (Thioridazine) 10 Mg Tablet 20 MG PO BID (Reported) Tolterodine Tartrate (Tolterodine Tartrate) 2 Mg Tablet 2 MG PO BID (Reported) As needed ([Thick it]) 1 DOSE PO DIRECTED PRN PRN thin liquids to prevent chokin ( Reported) honey thicken all liquids Acetaminophen (Acetaminophen) 325 Mg Capsule 650 MG PO Q6H PRN PRN For Pain ( Reported) Eucalyptus Oil/Menthol/Camphor (Vicks Vaporub Ointment) 1.2 %-2.6 %-4.8 % Oint...g. 1 APPLIC EXT TID PRN PRN For Cough (Reported) Additional med instructions - We add a new medication called Metoprolol to help control your heart rate. Please take it as directed. - Resume all other medications. Followup Plan Disposition: Home with long-term care Discharge Diet: Diabetic Discharge Activity: Limited until seen by PCP Patient Instructions You were found to have a viral gastroenteritis (also known as stomach flu), which led to severe dehydration and irregular heart beats (atrial fibrillation). Your diarrhea improved at discharge as you have not had any loose stool in the last 24 hours. Your heart rate and rhythm have been under control as well. Please make sure that you drink plenty of fluid at home to keep yourself hydrated. Go to the ER if you develop severe diarrhea again, fever, chills, nausea, vomiting, or change in mental status. Follow-up Provider: Marco Watt MD Follow-up with PCP in: 1 week Attending Statement The patient was seen and examined together with Dr. Rubalcava on 09-12-16 and I agree with the history, exam and plan as outlined in the note above. copies to: Marco Watt MD, Ngochanh H DO Sep 12, 2016 13:28 Thony Rizzo MD Sep 13, 2016 15:14 Ken Rubalcava DO Sep 12, 2016 13:28
--- NOTE | 2016-09-13 12:24 | NUR ---
Palliative care note D/A: Phone call to Makenna Roth, Director of [facility] which provides caregivers for pt and runs facility he lives in. Discuss POLST with her, unsure if document went back with pt upon dc. Document is also new to facility as pt has not had one in the past as has needed guardian and has not had one appointed. [facility] is working on identifying guardian for pt. Makenna relates that facility has not been able to fill out POLST or honor POLST in the past due to regulations surrounding pt care and his lack of a guardian. Explain that Dr. Cohen did not have guardian input either but that he had worked with other sources to develop care that would be beneficial to pt. Dr. Cohen has changed pt code status to DNR/DNI based on futility and non-beneficence. Will continue to provide other care short of those medical interventions. POLST filled out and signed by pt and dated 09/09/16, also signed by DR. Cohen same day, indicates DNAR and limited medical interventions. Faxed POLST as well as both of Dr. Cohen's notes dated 09/08/16 and 09/09/16. Makenna to present paperwork to [facility] in [place] and request that POLST be able to be honored as code status for place of residence. P: No further need for palliative care to follow. Teetee CEDEÑO, CCM
== END 2016-09-12 14:32 | disposition home or self-care (01) | DRG 871 ==
LOC: SED 01:19 → CCU 02:57 → PCC 04:43
PROVIDERS: ADMIT Hospitalist; ATTEND Hospitalist
DX: A41.89 Other specified sepsis (principal); G93.40 Encephalopathy, unspecified; A08.0 Rotaviral enteritis; E87.2 Acidosis; I48.91 Unspecified atrial fibrillation; E86.0 Dehydration; F20.9 Schizophrenia, unspecified; B35.6 Tinea cruris; G30.9 Alzheimer's disease, unspecified; F02.80 Dementia in other diseases classified elsewhere, unspecified severity, without behavioral disturbance, psychotic disturbance, mood disturbance, and anxiety; Z79.82 Long term (current) use of aspirin; E11.65 Type 2 diabetes mellitus with hyperglycemia; E03.9 Hypothyroidism, unspecified; Z66 Do not resuscitate; E86.9 Volume depletion, unspecified; Z79.84 Long term (current) use of oral hypoglycemic drugs; Z51.5 Encounter for palliative care; N32.81 Overactive bladder; R65.20 Severe sepsis without septic shock

== ENCOUNTER 2016-09-30 14:14 | Emergency (ER) | payer MEDICARE, MEDICAID, OTHER ==
[~2016-09-30 14:14] MED LIST changes: +CARB-199 AFFECT_EAR; -LEVO750T9 PO; +METO25TA6 PO; -MUPI22OI2 TOP; -TOLN133P TP; -TROL35.4 TP
[2016-09-30 14:22] VITALS: BP 119/53; PULSE 56; RESP 12; O2SAT 60
--- NOTE | 2016-09-30 15:12 | ED.REPORT ---
HPI-Neurologic Deficit Date of Service Sep 30, 2016 ED Provider: Dr. Kael Sullivan M.D. An 89 year old male with a medical history including DM, Alzheimer's disease, thyroid disease, and atrial fibrillation with RVR presents to the ED via EMS accompanied by his long chain quiller tender with left-sided weakness onset 1000 this morning. Associated symptoms include reduced verbal communication and slurred speech. EMS found the patient with a blood glucose of 183, a BP of 104/78, a heart rate of 60, and an O2 saturation of 96% on RA. He presents nonverbal but making occasional sounds. The patient is awake, alert, and oriented at baseline. He was discharged from the hospital on 09/12/16 after a four night stay with severe sepsis and gastroenteritis secondary to rotavirus. Nursing Notes Stated Complaint: CVA Chief Complaint: General Complaint Nursing Notes Reviewed: Yes Allergies: Coded Allergies: No Known Allergies (Verified , 09/08/16) Scheduled Aspirin (Aspirin) 81 Mg Tablet 81 MG PO DAILY Carbamide Peroxide (Earwax Treatment Drops) 6.5 % Drops 1 DROP AFFECT_EAR DIRECTED Docusate Sodium (Colace) 100 Mg Capsule 200 MG PO QAM Fluticasone Propionate (Flonase Allergy Relief) 50 Mcg/Actuation [place].susp 1 SPRAY NS QAM Glipizide (Glipizide) 5 Mg Tablet 2.5 MG PO QAM Levothyroxine (Levothyroxine) 175 Mcg Tablet 175 MCG PO QAM Magnesium Oxide (Magnesium Oxide) 400 Mg Tablet 400 MG PO TID Metoprolol Tartrate (Metoprolol Tartrate) 25 Mg Tablet 25 MG PO BID Multivitamin/Iron/Folic Acid (Sentry Tablet) 1 Each Tablet 1 EACH PO DAILY Omeprazole (Omeprazole) 20 Mg Capsule.dr 20 MG PO BID Ranitidine (Ranitidine) 150 Mg Capsule 150 MG PO BID Thioridazine (Thioridazine) 10 Mg Tablet 20 MG PO BID Tolterodine Tartrate (Tolterodine Tartrate) 2 Mg Tablet 2 MG PO BID Scheduled PRN ([Thick it]) 1 DOSE PO DIRECTED PRN PRN thin liquids to prevent chokin honey thicken all liquids Acetaminophen (Acetaminophen) 325 Mg Capsule 650 MG PO Q6H PRN PRN For Pain Eucalyptus Oil/Menthol/Camphor (Vicks Vaporub Ointment) 1.2 %-2.6 %-4.8 % Oint...g. 1 APPLIC EXT TID PRN PRN For Cough General Time Seen by Provider: 15:12 Chief Complaint Other (Left-sided weakness) Hx Obtained From: Statistical Clerk Unable to Obtain Hx: Patient condition Arrived By: Ambulance Sudden in Onset?: No Onset Occurred: 5 - 8 hours ago Symptom Duration: Since onset Pertinent Negative: Relieved by nothing Related History: Reports: Diabetes mellitus Immunizations: Unknown Recent Healthcare: Recent doctor visit, Recent hospitalization Risk Factors NIH Stroke Scale Time NIHSS Performed: 16:04 Date NIHSS Performed: Sep 30, 2016 Past Medical History Past Medical History Pneumonia Heartburn Arthritis Hiatal hernia Anxiety Dysphagia Thyroid disease Alzheimer's Atrial fibrillation with RVR Reports: Diabetes mellitus Past Surgical History None reported Family History non-contributory Smoking History Never Smoker Social History Has 24 hour caregiver Alcohol Use: Denies alcohol use Drug Use: Denies drug use Other Social History: Local resident Ambulatory Status Independent Review of Systems Unable to Obtain ROS Patient condition, Mental status Physical Exam Physical Exam Notes: Initial Vital Signs Vital Signs (First) Date Time Temp Pulse Resp B/P Pulse Ox O2 Delivery O2 Flow Rate FiO2 09/30/16 14:22 36.4 56 12 119/53 60 Room Air Initial VS: Reviewed ENT: Mucous membranes moist, Conjunctiva normal, No scleral icterus Skin: Warm, Dry General/Constitutional: Awake, Alert Head / Eyes: Atraumatic, Normocephalic Respiratory / Chest: Breath sounds NL, Breath sounds = bilat, No respiratory distress Cardiovascular: Heart rate NL, Regular rhythm Heart Sounds / Murmur: Positive: Systolic murmur present.. (III/, on sternal border) NEUROLOGIC: No facial droop No focal deficits Neuro exam compromised by patient's inability to cooperate Back: Atraumatic, No CVA tenderness Interpretation & Diagnostics Lab Results Interpretation Result Diagram: 09/30/16 1410 09/30/16 1410 Test 09/30/16 14:10 09/30/16 16:51 White Blood Count 7.0th/mm3 (3.8-10.1) Red Blood Count 3.64mil/mm3 (4.40-5.80) Hemoglobin 11.6g/dL (13.8-17.2) Hematocrit 35.5% (41.0-50.0) Mean Corpuscular Volume 97.5fL (81-100) Mean Corpuscular Hemoglobin 31.9pg (27.0-35.0) Mean Corpuscular Hemoglobin Concent 32.7% (32.0-37.0) Red Cell Distribution Width 13.4% (12.3-15.4) Platelet Count 128bil/L (150-400) Neutrophils (%) (Auto) 71.0% (40-74) Lymphocytes (%) (Auto) 19.0% (14-46) Monocytes (%) (Auto) 7.2% (4-12) Eosinophils (%) (Auto) 2.1% (0-5) Basophils (%) (Auto) 0.3% (0-3) Sodium Level 137mEq/L (134-144) Potassium Level 4.2mEq/L (3.5-5.2) Chloride Level 100mEq/L (97-108) Carbon Dioxide Level 24mmol/L (18-29) Blood Urea Nitrogen 36mg/dL (8-27) Creatinine 0.98mg/dL (0.76-1.27) Estimat Glomerular Filtration Rate 77mL/min (>59) Glucose Level 170mg/dL (60-99) Calcium Level 9.7mg/dL (8.5-10.1) Magnesium Level 2.1mg/dL (1.6-2.6) Total Bilirubin 0.4mg/dL (0.0-1.2) Aspartate Amino Transf (AST/SGOT) 17U/L (0-50) Alanine Aminotransferase (ALT/SGPT) 20U/L (0-44) Alkaline Phosphatase 88U/L (25-160) Total Protein 8.1g/dL (6.4-8.4) Albumin 3.7g/dL (3.4-5.0) Urine Color Yellow (YELLOW) Urine Appearance Clear (CLEAR,HAZY) Urine pH 5.5 (5.0-8.0) Urine Specific [place] 1.020 (1.003-1.035) Urine Protein Negativemg/dL (NEG,TRACE) Urine Glucose (UA) Negativemg/dL (NEGATIVE) Urine Ketones Negativemg/dL (NEGATIVE) Urine Occult Blood Moderate (NEGATIVE) Urine Nitrite Negative (NEGATIVE) Urine Bilirubin Negative (NEGATIVE) Urine Urobilinogen Normalmg/dL (NORMAL) Urine Leukocyte Esterase Negative (NEGATIVE) Urine RBC 11-50/hpf (0-2) Urine WBC 0-5/hpf (0-5) Urine Epithelial Cells Occasional/hpf (NONE-MOD) Urine Crystals None seen (NONE SEEN) Urine Bacteria None/hpf (NONE-FEW) Urine Hyaline Casts None/lpf (NONE) Urine Granular Casts None seen (NONE SEEN) Urine Waxy Casts None seen (NONE SEEN) Urine Red Blood Cell Casts None seen (NONE SEEN) Urine White Blood Cell Casts None seen (NONE SEEN) Urine Mucus None seen (None Seen) Urine Trichomonas None seen (NONE SEEN) Urine Yeast None (NONE SEEN) Urinalysis Comment None Urine Culture Reflexed Not indicated ECG Interpretation ECG Interpretation: Sinus rhythm rate 60 No change from 09/09/16 Time: 15:35 Interpreted by: ED physician X-Ray Chest Interpretation Chest Xray Interpretation: IMPRESSION: No acute cardiopulmonary disease. Dictated by: Praful Antonio RRA Interpreted: Sandy Damon MD on 09/30/2016 at 15:52 View: Portable, 1 view Interpretation / Wet Read by: Interpret - Radiologist CT Head Interpretation IMPRESSION: 1. No acute intracranial process. 2. Moderate to severe atrophy and chronic microvascular ischemic changes. Dictated by: Germaine Robertson M.D. on 09/30/2016 at 15:36 Study: Head CT no contrast Interpretation / Wet Read by: Interpret - Radiologist Re-Eval/Medical Decision Med Decision/Clinical Course Elderly male with advanced dementia. Presenting with weakness possibly lateralized. Decreased verbalization. Within the limited neurologic examination that I could accomplish I do not note anything acute. Does not appear to be acutely infected. The patient is in a well supported living situation and will be discharged back to this at present. Source of Hx: Old records Re-Evaluation/Progress : Time of Eval: 17:45 Patient Status: Condition improved Re-Evaluation/Progress Note: Discussed with patient's caregiver x-ray, CT, and lab results, diagnosis, and plan for discharge. Follow-up and return to the ER instructions given. Patient's caregiver agrees with plan for care and all questions were addressed. Counseled Regarding: Diagnosis, Lab results, Need for follow-up, When/why to return to ED Discharge & Departure Impression: Primary Impression: Change in behavior Disposition: Home Discharge Condition All VS Reviewed: Yes Condition: Improved Additional Instructions: Emergency department evaluation today included review, examination, labs CT brain and chest x-ray. Neurologic exam to the extent that it could be completed and other evaluation is reassuring today. There does not appear to be an acute stroke, there does not appear to be an acute infection. Continue previous care. Follow-up with primary care next week. Return to emergency department for fevers, shortness of breath and increasing weakness for other new concerning symptoms. Referrals: Marco Watt MD (PCP) Scribe Attestation Portions of this note were transcribed by Denia Garza. I, Dr. Sullivan, personally performed the history, physical exam, and medical decision-making; I reviewed and confirmed the accuracy of the information in the transcribed note. Signed by: Marielos Amezquita, 09/30/2016, 20:10 copies to: Marco Watt MD, Donald L MD Sep 30, 2016 15:12 DENIA GARZA Sep 30, 2016 16:01
[2016-09-30] MEDS ORDERED: Ondansetron 2 mg/mL 2 mL Inj IV PRN (15:15)
[2016-09-30 15:16] VITALS: BP 136/61; PULSE 58; RESP 16; O2SAT 92
[2016-09-30 15:22] LABS: BASOPHILS % (AUTO) 0.3 % (0-3); EOSINOPHILS % (AUTO) 2.1 % (0-5); MONOCYTES % (AUTO) 7.2 % (4-12); Mean Corpuscular Hemoglobin 31.9 pg (27.0-35.0); Mean Corpuscular Volume 97.5 fL (81-100); Platelet Count 128 bil/L (150-400)
[2016-09-30 15:32] LABS: Magnesium 2.1 mg/dL (1.6-2.6)
--- NOTE | 2016-09-30 15:42 | DRSVH ---
PROCEDURE: CT BRAIN WITHOUT CONTRAST ([id number]) INDICATIONS: speech difficulty TECHNIQUE: Noncontrast 4.5 mm thick angled axial sections acquired from the foramen magnum to the vertex, with c oronal reformats. COMPARISON: [facility], CT, CT BRAIN WO CON, 05/31/2016, 18:49. FINDINGS: Image quality: Excellent. CSF spaces: Basal cisterns are patent. No extra-axial fluid collections. The ventricles are symmet samy in size and shape. Brain: No intracranial bleeds or masses. There is cerebral volume loss for age, with resultant vent ricular and sulcal prominence. There are periventricular and deep white matter chronic small vessel ischemic changes. There is intracranial internal carotid artery atherosclerosis. Old left posterior internal capsule focus of lacunar ischemia. Skull and face: Calvarium and visualized facial bones appear intact, without suspicious lesions. Sinuses: Visualized sinuses and mastoids are clear. IMPRESSION: 1. No acute intracranial process. 2. Moderate to severe atrophy and chronic microvascular ischemic changes. Dictated by: Germaine Robertson M.D. on 09/30/2016 at 15:36 Approved by: Germaine Robertson M.D. on 09/30/2016 at 15:40
--- NOTE | 2016-09-30 15:52 | DRSVH ---
PROCEDURE: X-RAY CHEST ONE VIEW, PORTABLE ([id number]) INDICATIONS: weakness TECHNIQUE: One view of the chest was acquired. COMPARISON: [facility], CR, XR CHEST 1VW (PORTABLE), 09/08/2016, 1:21. FINDINGS: Surgical changes and devices: None. Lungs and pleura: No pleural effusions or pneumothorax. Lungs are clear. Lung volumes are increase d with flattening of the hemidiaphragms suggesting COPD. Mediastinum: Mediastinal contours appear normal. Heart size is normal. Bones and chest wall: No suspicious bony lesions. Overlying soft tissues appear unremarkable. IMPRESSION: No acute cardiopulmonary disease. Dictated by: Praful Antonio RRA Interpreted: Sandy Damon MD on 09/30/2016 at 15:52 Transcribed by: DIALLO on 09/30/2016 at 15:52 Approved by: Sandy Damon MD, PhD on 09/30/2016 at 15:53
[2016-09-30 17:16] LABS: APPEARANCE,URINE CLEAR (CLEAR,HAZY); COLOR,URINE YELLOW (YELLOW); OCCULT BLOOD,URINE MODERATE (NEGATIVE); PH,URINE 5.5 (5.0-8.0); UROBILINOGEN,URINE NORMAL (NORMAL)
[2016-09-30 18:22] VITALS: BP 137/87; PULSE 71; RESP 16; O2SAT 94
== END 2016-09-30 18:20 | disposition home or self-care (01) ==
LOC: SED 14:14 → EDBD 14:14 → SED 18:20
DX: R46.89 Other symptoms and signs involving appearance and behavior (principal); R53.1 Weakness; E07.9 Disorder of thyroid, unspecified; E11.9 Type 2 diabetes mellitus without complications; I48.91 Unspecified atrial fibrillation; K21.9 Gastro-esophageal reflux disease without esophagitis; Z86.73 Personal history of transient ischemic attack (TIA), and cerebral infarction without residual deficits; Z79.82 Long term (current) use of aspirin

== ENCOUNTER 2016-10-26 19:58 | Emergency (ER) | payer MEDICARE, MEDICAID, OTHER ==
[~2016-10-26] VITALS: Ht 185.4 cm; Wt 90.9 kg
[2016-10-26 20:02] VITALS: BP 135/67; PULSE 54; RESP 16; O2SAT 97
--- NOTE | 2016-10-26 20:36 | DRSVH ---
PROCEDURE: X-RAY CHEST ONE VIEW, PORTABLE ([id number]) INDICATIONS: 89 year-old male with possible aspiration episode. TECHNIQUE: One view of the chest was acquired. COMPARISON: [facility], CR, XR CHEST 1VW (PORTABLE), 09/30/2016, 15:25. [facility], CR, XR CHEST 1VW (PORTABLE), 09/08/2016, 1:21. [facility], CR, XR CHEST 1VW (PORT ABLE), 06/23/2016, 8:04. FINDINGS: Surgical changes and devices: None. Lungs and pleura: No pleural effusions or pneumothorax. Lungs are clear. Mediastinum: Mediastinal contours appear normal. Heart size is upper normal given AP technique. Th ere is aortic atherosclerosis. Bones and chest wall: No suspicious bony lesions. Overlying soft tissues appear unremarkable. IMPRESSION: No radiographic evidence for aspiration pneumonia. Dictated by: Gurmeet Delvalle M.D. on 10/26/2016 at 20:29 Approved by: Gurmeet Delvalle M.D. on 10/26/2016 at 20:29
[2016-10-26 21:31] LABS: BASOPHILS % (AUTO) 0.4 % (0-3); EOSINOPHILS % (AUTO) 3.8 % (0-5); MONOCYTES % (AUTO) 6.7 % (4-12); Mean Corpuscular Hemoglobin 32.1 pg (27.0-35.0); Mean Corpuscular Volume 97.7 fL (81-100); NEUTROPHILS % (AUTO) 57.4 % (40-74); Platelet Count 116 bil/L (150-400)
--- NOTE | 2016-10-26 22:20 | ED.REPORT ---
HPI-NVD Date of Service Oct 26, 2016 ED Provider: Edgar Vazquez MD Pt is an 89 y.o. male with a hx of DM, dysphagia, Alzheimer's, thyroid disease, and A-fib with RVR who presents to the ED accompanied by his caregiver with intermittent vomiting onset prior to arrival. Per caregiver pt was eating his pureed dinner fast and after finishing he proceeded to vomit approximately once every 15 minutes. Pt denies abdominal pain. Pt is under 24 hour care by caregivers. Pt was discharged from 09/12/16 after a four night stay with severe sepsis and gastroenteritis secondary to rotavirus. Pt is a poor historian due to his mental status. Nursing Notes Stated Complaint: VOMITING Chief Complaint: Male Abdominal Pain Nursing Notes Reviewed: Yes Allergies: Coded Allergies: No Known Allergies (Verified , 10/26/16) Scheduled Aspirin (Aspirin) 81 Mg Tablet 81 MG PO DAILY Carbamide Peroxide (Earwax Treatment Drops) 6.5 % Drops 1 DROP AFFECT_EAR DIRECTED Cephalexin (Cephalexin) 500 Mg Capsule 500 MG PO TID Docusate Sodium (Colace) 100 Mg Capsule 200 MG PO QAM Fluticasone Propionate (Flonase Allergy Relief) 50 Mcg/Actuation [place].susp 1 SPRAY NS QAM Glipizide (Glipizide) 5 Mg Tablet 2.5 MG PO QAM Levothyroxine (Levothyroxine) 175 Mcg Tablet 175 MCG PO QAM Magnesium Oxide (Magnesium Oxide) 400 Mg Tablet 400 MG PO TID Metoprolol Tartrate (Metoprolol Tartrate) 25 Mg Tablet 25 MG PO BID Multivitamin/Iron/Folic Acid (Sentry Tablet) 1 Each Tablet 1 EACH PO DAILY Omeprazole (Omeprazole) 20 Mg Capsule.dr 20 MG PO BID Ranitidine (Ranitidine) 150 Mg Capsule 150 MG PO BID Thioridazine (Thioridazine) 10 Mg Tablet 20 MG PO BID Tolterodine Tartrate (Tolterodine Tartrate) 2 Mg Tablet 2 MG PO BID Scheduled PRN ([Thick it]) 1 DOSE PO DIRECTED PRN PRN thin liquids to prevent chokin honey thicken all liquids Acetaminophen (Acetaminophen) 325 Mg Capsule 650 MG PO Q6H PRN PRN For Pain Eucalyptus Oil/Menthol/Camphor (Vicks Vaporub Ointment) 1.2 %-2.6 %-4.8 % Oint...g. 1 APPLIC EXT TID PRN PRN For Cough General Time Seen by MD: 22:18 Chief Complaint Vomiting Hx Obtained From: Patient, Software Engineer [employer] Unable to Obtain Hx: Patient condition, Mental status Onset Occurred: 1 - 4 hours ago Symptom Duration: Intermittent Past Medical History Past Medical History Notes: DNR/DNI, comfort care and limited interventions Past Medical History Pneumonia Heartburn Arthritis Hiatal hernia Anxiety Dysphagia Thyroid disease Alzheimer's Atrial fibrillation with RVR Reports: Diabetes mellitus Past Surgical History None reported Family History non-contributory Smoking History Never Smoker Social History Has 24 hour caregiver Alcohol Use: Denies alcohol use Drug Use: Denies drug use Other Social History: Local resident Ambulatory Status Independent Review of Systems Unable to Obtain ROS Patient condition, Mental status GI: Reports: Nausea, Vomiting, Denies: Abdominal pain Complete sys rev & neg: except as marked. Physical Exam Initial Vital Signs Vital Signs (First) Date Time Temp Pulse Resp B/P Pulse Ox O2 Delivery O2 Flow Rate FiO2 10/26/16 20:02 36.3 54 16 135/67 97 Room Air Initial VS: Reviewed, Vital signs normal Head / Eyes: Atraumatic, Normocephalic, PERRL Extremities: Vascular intact, Neuro intact Skin: Warm, Dry, No cyanosis Psychiatric: Mood/affect normal, Behavior normal, Normal thought content General/Constitutional: Awake, No acute distress, Well appearing, Well hydrated , Well nourished, Not toxic appearing Chronic dementia Abdomen: Atraumatic, Soft, Non-tender, No guarding, No rebound, No distention ENT: Atraumatic, Airway patent Mouth: Positive: Mucous membranes dry Respiratory / Chest: Atraumatic, Breath sounds NL, Breath sounds = bilat, No respiratory distress Cardiovascular: Heart rate NL, Regular rhythm, Heart sounds NL, Peripheral circulation NL Interpretation & Diagnostics Lab Results Interpretation Result Diagram: 10/26/16211310/26/162113 Test 10/26/16 20:10 10/26/16 21:14 Urine Color Yellow (YELLOW) Urine Appearance Cloudy (CLEAR,HAZY) Urine pH 6.0 (5.0-8.0) Urine Specific [place] 1.025 (1.003-1.035) Urine Protein Negativemg/dL (NEG,TRACE) Urine Glucose (UA) Negativemg/dL (NEGATIVE) Urine Ketones Negativemg/dL (NEGATIVE) Urine Occult Blood Negative (NEGATIVE) Urine Nitrite Negative (NEGATIVE) Urine Bilirubin Negative (NEGATIVE) Urine Urobilinogen Normalmg/dL (NORMAL) Urine Leukocyte Esterase Small (NEGATIVE) Urine RBC 0-2/hpf (0-2) Urine WBC 6-10/hpf (0-5) Urine Epithelial Cells Many/hpf (NONE-MOD) Urine Crystals None seen (NONE SEEN) Urine Bacteria Moderate/hpf (NONE-FEW) Urine Hyaline Casts None/lpf (NONE) Urine Granular Casts None seen (NONE SEEN) Urine Waxy Casts None seen (NONE SEEN) Urine Red Blood Cell Casts None seen (NONE SEEN) Urine White Blood Cell Casts None seen (NONE SEEN) Urine Mucus Present (None Seen) Urine Trichomonas None seen (NONE SEEN) Urine Yeast None (NONE SEEN) Urine Culture Reflexed Indicated White Blood Count 5.0th/mm3 (3.8-10.1) Red Blood Count 3.49mil/mm3 (4.40-5.80) Hemoglobin 11.2g/dL (13.8-17.2) Hematocrit 34.1% (41.0-50.0) Mean Corpuscular Volume 97.7fL (81-100) Mean Corpuscular Hemoglobin 32.1pg (27.0-35.0) Mean Corpuscular Hemoglobin Concent 32.8% (32.0-37.0) Red Cell Distribution Width 13.1% (12.3-15.4) Platelet Count 116bil/L (150-400) Neutrophils (%) (Auto) 57.4% (40-74) Lymphocytes (%) (Auto) 31.3% (14-46) Monocytes (%) (Auto) 6.7% (4-12) Eosinophils (%) (Auto) 3.8% (0-5) Basophils (%) (Auto) 0.4% (0-3) Sodium Level 136mEq/L (134-144) Potassium Level 4.2mEq/L (3.5-5.2) Chloride Level 99mEq/L (97-108) Carbon Dioxide Level 22mmol/L (18-29) Blood Urea Nitrogen 33mg/dL (8-27) Creatinine 0.93mg/dL (0.76-1.27) Estimat Glomerular Filtration Rate 81mL/min (>59) Glucose Level 182mg/dL (60-99) Lactic Acid Level 2.1mmol/L (0.4-2.0) Calcium Level 9.4mg/dL (8.5-10.1) Magnesium Level 2.0mg/dL (1.6-2.6) Total Bilirubin 0.2mg/dL (0.0-1.2) Aspartate Amino Transf (AST/SGOT) 19U/L (0-50) Alanine Aminotransferase (ALT/SGPT) 21U/L (0-44) Alkaline Phosphatase 92U/L (25-160) Total Protein 7.7g/dL (6.4-8.4) Albumin 3.7g/dL (3.4-5.0) Lipase 12U/L (13-60) Lab Results Interpretation: Elevated nonfasting glucose, mildly elevated lactic acid X-Ray Chest Interpretation Chest Xray Interpretation: IMPRESSION: No radiographic evidence for aspiration pneumonia. Dictated by: Gurmeet Delvalle M.D. on 10/26/2016 at 20:29 Approved by: Gurmeet Delvalle M.D. on 10/26/2016 at 20:29 Re-Eval/Medical Decision Med Decision/Clinical Course 89-year-old male with urinary tract infection, mild dehydration, and a mild elevation of his lactic acid. He was cultured, rehydrated, and given first dose of IV antibiotics (Rocephin). He is improved on physical examination. He did not require significant vascular support. He will be sent home with cephalexin 500 mg by mouth 3 times a day #30 prescribed. Push fluids. Recheck if he worsens. Source of Hx: Old records Re-Evaluation/Progress #1: Time of Eval: 22:55 Re-Evaluation/Progress Note: Pt has cloudy urine with 6-10 white cells and many bacteria. Mildly elevated lactic acid. Pt is given fluids and IV Rocephin, after cultures. Re-Evaluation/Progress #2: Time of Eval: 01:01 Patient Status: Condition improved Re-Evaluation/Progress Note: Pt rechecked. Pt appears improved. Discussed plan for discharge with director business integration, they understand and agree with plan. Counseled Regarding: Diagnosis, Lab results Discharge & Departure Impression: Primary Impression: Urinary tract infection Urinary tract infection type: acute cystitis Hematuria presence: without hematuria Qualified Code: N30.00 - Acute cystitis without hematuria Disposition: Home Discharge Condition All VS Reviewed: Yes Patient Instructions: Urinary Tract Infection in Men (ED) Additional Instructions: Diego has a urinary tract infection. Culture is pending. He received fluids and Rocephin here in the emergency room. A prescription was sent to pharmacy for cephalexin (Keflex) 500 mg by mouth 3 times a day, #30 prescribed. Encourage fluids. Follow up with his regular doctor as needed for persistent symptoms. Referrals: Marco Watt MD (PCP) Marielos Attestation Portions of this note were transcribed by Nigel Harrison. I, Dr. Vazquez personally performed the history, physical exam and medical decision-making; I reviewed and confirmed the accuracy of the information in the transcribed note. Signed by: Marielos Quiles, 10/27/16 and 0111. copies to: Marco Watt MD, Howard L MD Oct 26, 2016 22:20 NIGEL HARRISON Oct 26, 2016 22:27
[2016-10-26] MEDS ORDERED: 0.9% Sodium Chloride 1,000 ML IV ONE (22:25)
[2016-10-26] MEDS ORDERED: Ondansetron 2 mg/mL 2 mL Inj IV PRN (22:25)
[2016-10-26 22:44] LABS: APPEARANCE,URINE CLOUDY (CLEAR,HAZY); COLOR,URINE YELLOW (YELLOW); OCCULT BLOOD,URINE NEGATIVE (NEGATIVE); UROBILINOGEN,URINE NORMAL (NORMAL)
[2016-10-26] MEDS ORDERED: cefTRIAXone Inj 2,000 MG in Dextrose 5% Minibag Plus 50 ML IV ONE (22:55)
[2016-10-27] MEDS ORDERED: CEPH500C PO (01:05)
[2016-10-27 01:13] VITALS: BP 133/74; PULSE 60; RESP 15; O2SAT 98
== END 2016-10-27 02:33 | disposition home or self-care (01) ==
LOC: EDBD 19:58 → SED 19:58
DX: N30.00 Acute cystitis without hematuria (principal); E11.9 Type 2 diabetes mellitus without complications; Z79.82 Long term (current) use of aspirin; Z66 Do not resuscitate; Z87.01 Personal history of pneumonia (recurrent); Z79.84 Long term (current) use of oral hypoglycemic drugs
CPT/HCPCS: 36415; 71010; 80053; 81000; 83605; 83690; 83735; 85025; 87040; 87086; 87088; 96365; 96375; 99285; J0696; J2405; J7030

== ENCOUNTER 2016-11-17 07:22 | Emergency (ER) | payer MEDICARE, MEDICAID ==
[~2016-11-17] VITALS: Ht 188 cm; Wt 79.5 kg
[~2016-11-17 07:22] MED LIST changes: +CEPH500C PO
[2016-11-17 07:33] VITALS: BP 119/56; PULSE 63; RESP 12; O2SAT 96
--- NOTE | 2016-11-17 07:37 | ED.REPORT ---
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 It is also noted that he had a low BP at home just prior to arrival. Patient was seen here in the ER at the end of August 2016 and was admitted for sepsis from severe gastroenteritis. It is difficult to obtain any history from the patient due to underlying Alzheimer's and developmental delay. Code status is DNAR, limited interventions. Nursing Notes Stated Complaint: DIARRHEA Chief Complaint: General Complaint Nursing Notes Reviewed: Yes Allergies: Coded Allergies: No Known Allergies (Verified , 10/26/16) Scheduled Aspirin (Aspirin) 81 Mg Tablet 81 MG PO DAILY Carbamide Peroxide (Earwax Treatment Drops) 6.5 % Drops 1 DROP AFFECT_EAR DIRECTED Cephalexin (Cephalexin) 500 Mg Capsule 500 MG PO TID Docusate Sodium (Colace) 100 Mg Capsule 200 MG PO QAM Fluticasone Propionate (Flonase Allergy Relief) 50 Mcg/Actuation [place].susp 1 SPRAY NS QAM Glipizide (Glipizide) 5 Mg Tablet 2.5 MG PO QAM Levothyroxine (Levothyroxine) 175 Mcg Tablet 175 MCG PO QAM Magnesium Oxide (Magnesium Oxide) 400 Mg Tablet 400 MG PO TID Metoprolol Tartrate (Metoprolol Tartrate) 25 Mg Tablet 25 MG PO BID Multivitamin/Iron/Folic Acid (Sentry Tablet) 1 Each Tablet 1 EACH PO DAILY Omeprazole (Omeprazole) 20 Mg Capsule.dr 20 MG PO BID Ranitidine (Ranitidine) 150 Mg Capsule 150 MG PO BID Thioridazine (Thioridazine) 10 Mg Tablet 20 MG PO BID Tolterodine Tartrate (Tolterodine Tartrate) 2 Mg Tablet 2 MG PO BID Scheduled PRN ([Thick it]) 1 DOSE PO DIRECTED PRN PRN thin liquids to prevent chokin honey thicken all liquids Acetaminophen (Acetaminophen) 325 Mg Capsule 650 MG PO Q6H PRN PRN For Pain Eucalyptus Oil/Menthol/Camphor (Vicks Vaporub Ointment) 1.2 %-2.6 %-4.8 % Oint...g. 1 APPLIC EXT TID PRN PRN For Cough General Time Seen by MD: 07:34 Chief Complaint Diarrhea Hx Obtained From: Plate Fitter, EMS Arrived By: Ambulance Sudden in Onset?: No Onset Occurred: 1 - 4 hours ago Symptom Duration: Since onset Context Related History: Reports Diabetes mellitus Similar Sx Previous: Yes Past Medical History Past Medical History Notes: DNR/DNI, comfort care and limited interventions Past Medical History Pneumonia Heartburn Arthritis Hiatal hernia Anxiety Dysphagia Thyroid disease Alzheimer's Atrial fibrillation with RVR Reports: Diabetes mellitus Past Surgical History None reported Family History non-contributory Smoking History Never Smoker Social History Has 24 hour caregiver Alcohol Use: Denies alcohol use Drug Use: Denies drug use Other Social History: Local resident Ambulatory Status Independent Review of Systems It is difficult to obtain a complete ROS from the patient due to his underlying developmental delay and Alzheimer's. Full Review of Systems GI: Reports: Diarrhea Complete sys rev & neg: except as marked. Physical Exam Vital Signs Vital Signs Date Time Temp Pulse Resp B/P Pulse Ox O2 Delivery O2 Flow Rate FiO2 11/17/16 11:22 36.7 59 20 105/49 95 Room Air 11/17/16 08:12 36.4 65 20 123/53 94 Room Air 11/17/16 07:33 36.4 63 12 119/56 96 Room Air Initial VS: Reviewed Extremities: Vascular intact, Neuro intact, No swelling, No tenderness Skin: Warm, Dry, No cyanosis General/Constitutional: Awake, Alert Head / Eyes: Atraumatic, Normocephalic Neck: Supple, No meningismus, Full range of motion, No swelling, Non-tender, No masses Respiratory / Chest: Breath sounds NL, No respiratory distress, No rales, No rhonchi, No wheezing Gurgly cough. Cardiovascular: Heart rate NL, Regular rhythm, Heart sounds NL, Cap refill not delayed, Peripheral circulation NL Abdomen: Soft, Non-tender, No guarding, No rebound Interpretation & Diagnostics Lab Results Interpretation Result Diagram: 11/17/16 0800 11/17/16 0800 Test 11/17/16 08:00 11/17/16 09:40 White Blood Count 7.9th/mm3 (3.8-10.1) Red Blood Count 3.62mil/mm3 (4.40-5.80) Hemoglobin 11.6g/dL (13.8-17.2) Hematocrit 34.9% (41.0-50.0) Mean Corpuscular Volume 96.4fL (81-100) Mean Corpuscular Hemoglobin 32.0pg (27.0-35.0) Mean Corpuscular Hemoglobin Concent 33.2% (32.0-37.0) Red Cell Distribution Width 13.1% (12.3-15.4) Platelet Count 156bil/L (150-400) Neutrophils (%) (Auto) 67.2% (40-74) Lymphocytes (%) (Auto) 16.0% (14-46) Monocytes (%) (Auto) 8.0% (4-12) Eosinophils (%) (Auto) 8.4% (0-5) Basophils (%) (Auto) 0.1% (0-3) Sodium Level 141mEq/L (134-144) Potassium Level 4.3mEq/L (3.5-5.2) Chloride Level 103mEq/L (97-108) Carbon Dioxide Level 24mmol/L (18-29) Blood Urea Nitrogen 29mg/dL (8-27) Creatinine 1.08mg/dL (0.76-1.27) Estimat Glomerular Filtration Rate 69mL/min (>59) Glucose Level 181mg/dL (60-99) Calcium Level 9.4mg/dL (8.5-10.1) Magnesium Level 2.1mg/dL (1.6-2.6) Total Bilirubin 0.6mg/dL (0.0-1.2) Aspartate Amino Transf (AST/SGOT) 16U/L (0-50) Alanine Aminotransferase (ALT/SGPT) 13U/L (0-44) Alkaline Phosphatase 99U/L (25-160) Total Protein 7.9g/dL (6.4-8.4) Albumin 3.5g/dL (3.4-5.0) Lipase 8U/L (13-60) Hold Casey Top Tube Received (Received) Urine Color Yellow (YELLOW) Urine Appearance Clear (CLEAR,HAZY) Urine pH 5.5 (5.0-8.0) Urine Specific [place] 1.030 (1.003-1.035) Urine Protein Negativemg/dL (NEG,TRACE) Urine Glucose (UA) Negativemg/dL (NEGATIVE) Urine Ketones Negativemg/dL (NEGATIVE) Urine Occult Blood Negative (NEGATIVE) Urine Nitrite Negative (NEGATIVE) Urine Bilirubin Negative (NEGATIVE) Urine Urobilinogen Normalmg/dL (NORMAL) Urine Leukocyte Esterase Negative (NEGATIVE) Urine RBC 0-2/hpf (0-2) Urine WBC 0-5/hpf (0-5) Urine Epithelial Cells Occasional/hpf (NONE-MOD) Urine Crystals None seen (NONE SEEN) Urine Bacteria None/hpf (NONE-FEW) Urine Hyaline Casts Occasional/lpf (NONE) Urine Granular Casts None seen (NONE SEEN) Urine Waxy Casts None seen (NONE SEEN) Urine Red Blood Cell Casts None seen (NONE SEEN) Urine White Blood Cell Casts None seen (NONE SEEN) Urine Mucus Present (None Seen) Urine Trichomonas None seen (NONE SEEN) Urine Yeast None (NONE SEEN) Urinalysis Comment None Urine Culture Reflexed Not indicated ECG Interpretation ECG Interpretation: Sinus rhythm, rate [address] T changes Q waves in 3 and avR, unchanged from prior Time: 08:12 Interpreted by: ED physician X-Ray Chest Interpretation Chest Xray Interpretation: IMPRESSION: Chronic interstitial prominence but without definite interval worsening over time considering later film technique. A small degree of chronic CHF may be superimposed. Dictated by: Daniel Green M.D. on 11/17/2016 at 9:18 Approved by: Daniel Green M.D. on 11/17/2016 at 9:19 View: Portable, 1 view Interpretation / Wet Read by: Interpret - Radiologist Re-Eval/Medical Decision Med Decision/Clinical Course 89-year-old male history of dementia presenting with diarrhea from assisted living facility. Patient was observed here for 3 hours with no diarrhea. His vital signs were stable. His labs are stable. He appeared quite well. Patient discharged home in good condition with return precautions. Source of Hx: Old records Time of Eval: 10:21 Re-Evaluation/Progress Note: Discussed lab and imaging results and plan to discharge. Patient is amenable to the plan. Return precautions given. All other questions addressed. Counseled Regarding: Diagnosis, Lab results, Need for follow-up, When/why to return to ED Discharge & Departure Primary Impression: Diarrhea Disposition: Home Discharge Condition All VS Reviewed: Yes Condition: Stable Patient Instructions: Acute Diarrhea (ED) Additional Instructions: Your labs and x-ray were not concerning. Follow-up with your primary care provider in 1-2 days. Return to the ER if you develop new or worsening abdominal pain, diarrhea, vomiting, fever, or any other concerning symptoms. Referrals: Marco Watt MD (PCP) Marielos Attestation Portions of this note were transcribed by Roberth Mckinney. I, Dr. Almodovar, personally performed the history, physical exam and medical decision-making; I reviewed and confirmed the accuracy of the information in the transcribed note. Signed by: Marielos Giraldo, 11/17/2016 at 10:21 copies to: Marco Watt MD, Ben M MD November 17, 2016 07:36 ROBERTH MCKINNEY November 17, 2016 07:44
[2016-11-17] MEDS ORDERED: 0.9% Sodium Chloride 500 ML IV ONE (07:43)
[2016-11-17] MEDS ORDERED: Ondansetron 2 mg/mL 2 mL Inj IVPUSH PRN (07:45)
[2016-11-17 08:11] LABS: BASOPHILS % (AUTO) 0.1 % (0-3); EOSINOPHILS % (AUTO) 8.4 % (0-5); Mean Corpuscular Volume 96.4 fL (81-100); NEUTROPHILS % (AUTO) 67.2 % (40-74); Platelet Count 156 bil/L (150-400)
[2016-11-17 08:12] VITALS: BP 123/53; PULSE 65; RESP 20; O2SAT 94
[2016-11-17 08:31] LABS: Magnesium 2.1 mg/dL (1.6-2.6)
--- NOTE | 2016-11-17 09:20 | DRSVH ---
PROCEDURE: X-RAY CHEST ONE VIEW, PORTABLE ([id number]) INDICATIONS: cough TECHNIQUE: One view of the chest was acquired. COMPARISON: [facility], CR, XR CHEST 1VW (PORTABLE), 10/26/2016, 20:18. [facility], CR, XR CHEST 1VW (PORTABLE), 09/30/2016, 15:25. FINDINGS: Surgical changes and devices: None. Lungs and pleura: No pleural effusions or pneumothorax. Lungs are abnormal with a chronic interstit ial prominence, which likely has not changed considering later film technique. Mediastinum: Mediastinal contours appear normal. Heart size is normal. Bones and chest wall: No suspicious bony lesions. Overlying soft tissues appear unremarkable. IMPRESSION: Chronic interstitial prominence but without definite interval worsening over time conside ring later film technique. A small degree of chronic CHF may be superimposed. Dictated by: Daniel Green M.D. on 11/17/2016 at 9:18 Approved by: Daniel Green M.D. on 11/17/2016 at 9:19
[2016-11-17 09:53] LABS: APPEARANCE,URINE CLEAR (CLEAR,HAZY); COLOR,URINE YELLOW (YELLOW); OCCULT BLOOD,URINE NEGATIVE (NEGATIVE); PH,URINE 5.5 (5.0-8.0); UROBILINOGEN,URINE NORMAL (NORMAL)
[2016-11-17 11:22] VITALS: BP 105/49; PULSE 59; RESP 20; O2SAT 95
== END 2016-11-17 11:26 | disposition home or self-care (01) ==
LOC: SED 07:22 → EDBD 07:22 → EDSEX 07:22 → SED 11:26
DX: R19.7 Diarrhea, unspecified (principal); E11.9 Type 2 diabetes mellitus without complications; Z79.82 Long term (current) use of aspirin; Z79.899 Other long term (current) drug therapy; Z79.84 Long term (current) use of oral hypoglycemic drugs
CPT/HCPCS: 71010; 80053; 81000; 83690; 83735; 85025; 93005; 96360; 99284; J7030